=== PATIENT | female | born 1940 | race Caucasian/White ===

== ENCOUNTER 2020-01-24 13:51 | Inpatient (IN) | payer OTHER ==
--- NOTE | 2020-01-24 10:20 | R.PREADM ---
PRE-ADMISSION SCREENING FORM SCREENING DATE AND TIME 01/23/2020 15:17 (CDT) ANTICIPATED REHAB ADMISSION DATE 01/25/2020 REFERRING FACILITY [facility] REFERRAL DATE AND TIME 01/23/2020 15:17 (CDT) REFERRAL OFFICE PHONE [phone] ACUTE ADMIT DATE 01/21/2020 Previous Rehabilitation(s): No. 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 Nathan Grove M.D. MR# [id number] NAME SO JAMES ADDRESS [address] [place] [address] [place] [address] PHONE [facility] [id number] DATE OF 1940 AGE 79 SSN# [id number] GENDER female MARITAL STATUS RACE unknown race PREF. LANGUAGE (IF NON-PAKISTANI) Stateless ADMIT FROM 02 - [facility] PRE-HOSPITAL LIVING SETTING 01 - Home (private home/apt. board/care, assisted living, senior care, transitional living) HOME TYPE AND DETAILS Type of home: single family house # of levels in the residence: 1 # of steps within the residence: 0 # of steps to enter the residence: 1 PRE-HOSPITAL LIVING WITH Family/Relatives FAMILY SUPPORT Yes PRIMARY FAMILY CONTACT NAME RODNEY JAMES PRIMARY FAMILY CONTACT PHONE PRIMARY FAMILY CONTACT RELATIONSHIP Spouse PHONE PRIMARY FAMILY CONTACT ON ADM.? no IS PRIMARY FAMILY CONTACT AUTH. REP.? no 1ST EMERGENCY CONTACT RODNEY JAMES 1ST CONTACT PHONE 1ST CONTACT RELATIONSHIP Spouse PHONE 1ST CONTACT ON ADM. no IS 1ST CONTACT AUTH. REP.? no PHONE 2ND CONTACT ON ADM.? no PATIENT EMPLOYMENT STATUS Retired (for age) PATIENT EMPLOYER No Employer PAYOR INFORMATION: 1ST PAYOR NAME Medicare 1ST PAYOR PHONE 1ST PAYOR INJURY/ILLNESS DUE TO ACCIDENT? No ANOTHER DEMOCRAT RESPONSIBLE? No PRIMARY REHAB/ACUTE DIAGNOSIS: BILATERAL AVULSION TO LOWER EXTREMITIES ONSET DATE 01/21/2020 REHAB IMPAIRMENT CATEGORY (EVE): 20 Miscellaneous (Misc) does NOT meet 60% rule PRIMARY DIAGNOSIS-RELATED SURGERIES: No surgeries related to the primary diagnosis were performed. SUMMARY OF ACUTE HOSPITALIZATION: Pt. is a 79 yo Right-handed female of unknown race. On 01/21/2020 she was admitted to [facility] with diagnosis BILATERAL AVULSION TO LOWER EXTRE MITIES. Her impairment category is Debility 16 - Debility (16). Pre-morbidly, Pt. was independent/mod-I in Locomotion, Balance, Social Cognition, Transfers Control, Sphincter Control, Self-Care, Communication, and Endurance; and she had good Endurance, Self-Care, Co mmunication, Safety Awareness, and Transfers Control. Currently, she has deficits of Balance, Safety Awareness, Locomotion, Endurance, Sphincter Control, a nd Transfers Control. Pt. is now referred to [facility] for acute in-patient rehabilitation in order to maximize patient's functional independence in activities of daily living, strength, ROM, and mobi lity. Patient has realistic goal of being discharged at assistance level 6-Fly to reside at Home with Fam lisandro/Relatives. So James is a 79 year old independent female that lives in an independently at home and takes care of herself and her , Rodney. She performs all her own ADLs and IADLs. Prior to [facility] she was seeing her PCP regularly in [place] where she lives. Mrs. James admitted to [facility] for a fall in her gravel driveway injuring both knees and hand causing open wounds. She would most definitely benefit from wound care and acute inpatient therapy. This has caused Mrs. James to become severely debilitated and unable to live at her prior level of activity at home. She was unable to transfer out of the fall and was transferred to the emergency room. It is reasonable and necessary for the patient to come to acute inpatient rehab for approximately 7-10 days in order to return to her prior level of living for her and her . The patient has a history of CAD, HTN, A-fib, UTI, COPD, GERD, arthritis, pacemaker and stents in bilateral LE. She is now being transferred to [facility] Inpatient rehabilitation and is medically stable with relatively stable labs. He is now medically stable but in need of 24 hour nursing, doctor supervision and oversight while receiving expected to participate in 3 hours of therapy a day/15 hours per week and receive care with intensive interdisciplinary approach. COVID-19 screening performed; spoke with patient via phone. Patient denies new onset of fever, cough, difficulty breathing, sore throat, body aches and non-allergy nasal congestion in the past 24 hours. Patient denies travel outside of [place] in the past 14 days. Patient denies any contact with someone who has a confirmed diagnosis of or is under investigation for COVID-19 in the past 14 days. Patient has been tested negative for COVID- 19. PAST MEDICAL HISTORY CORONARY ARTERY DISEASE HYPERTENSION COPD CHRONIC GASTRESOPHAGEAL REFLUX DISEASE ARTHRITIS PAST SURGICAL HISTORY: PACEMAKER APPENDECTOMY HYSTERECTOMY TONSILLECTOMY BILATERAL FOOT SURGERY STENTS IN BILATERAL LOWER EXTREMITIES BILATERAL CATARACT SURGERY MEDICATION ALLERGIES: No Known Drug Allergies (NKDA) ENVIRONMENTAL ALLERGIES: - Substance Allergies None Known - Other Allergies None Known CODE STATUS: Full code WEIGHT/HEIGHT/BMI: WEIGHT 112 lbs HEIGHT 5' 0" BMI 21.9 DIET: - Diet Type Regular - Diet - Solid Texture Regular - Diet - Liquid Texture Regular - Tube Feed N/A REVIEW OF SYSTEMS: - Gen Alert and awake Lying in bed No apparent distress Oriented to: person, time, and place - Vital Signs Temperature: 98.1 F SBP/DBP: 185/62 Pulse: 88 Resp: 18 Vital signs stable, afebrile - CVS RRR VITAL SIGNS Temperature: 98/.1 F SBP/DBP: 185/62 Pulse: 88 Resp: 18 Vital signs stable, afebrile MEDICATIONS/TREATMENT: Other- See attached MAR (Medication Administration Record). CURRENT SPHINCTER CONTROL: Pre-hospital bladder status: unspecified # of bladder accidents in the last 7 days prior to screenin Pre-hospital bowel status: unspecified # of bowel accidents in the last 7 days prior to screenin Last Bowel Movement Date: 01/23/2020 CURRENT LOCOMOTION STATUS: distance walked 0 feet DETAILED CURRENT FUNCTIONAL STATUS: - Bladder accident frequency: Ind - No accidents in the past 7 days - Bowel accident frequency: Ind - No accidents in the past 7 days - Walking score based on distance walked: 0(N/A) - Wheelchair score based on distance traveled: 0(N/A) QI SCORES: - Self-Care A. Eating 03-Partial/moderate assistance B. Oral hygiene 03-Partial/moderate assistance C. Toileting hygiene 88-Not attempted due to medical condition or safety concerns E. Shower/bathe self 03-Partial/moderate assistance F. Upper body dressing 88-Not attempted due to medical condition or safety concerns G. Lower body dressing 88-Not attempted due to medical condition or safety concerns H. Putting on/taking off footwear 88-Not attempted due to medical condition or safety concerns - Mobility A. Roll left and right 03-Partial/moderate assistance B. Sit to lying 03-Partial/moderate assistance C. Lying to sitting on side of bed 03-Partial/moderate assistance D. Sit to stand 03-Partial/moderate assistance E. Chair/pxz-ny-wqzyy transfer 03-Partial/moderate assistance F. Toilet transfer 03-Partial/moderate assistance G. Car transfer 88-Not attempted due to medical condition or safety concerns I. Walk 10 feet 88-Not attempted due to medical condition or safety concerns J. Walk 50 feet with two turns 88-Not attempted due to medical condition or safety concerns K. Walk 150 feet 88-Not attempted due to medical condition or safety concerns L. Walking 10 feet on uneven surfaces 88-Not attempted due to medical condition or safety concerns M. 1 step (curb) 88-Not attempted due to medical condition or safety concerns N. 4 steps 88-Not attempted due to medical condition or safety concerns O. 12 steps 88-Not attempted due to medical condition or safety concerns P. Picking up object 03-Partial/moderate assistance R. Wheel 50 feet with two turns 88-Not attempted due to medical condition or safety concerns S. Wheel 150 feet 88-Not attempted due to medical condition or safety concerns - Bladder and Bowel Bladder continence 3-Incontinent daily Bowel continence 0-Always continent - Endurance Fair - Balance Fair - Safety Awareness Fair CURRENT FUNC. DEFICITS: Self-Care, Mobility, Endurance, Balance, and Safety Awareness CURRENT / PREVIOUS ASSISTIVE DEVICES: Oxygen HISTORY OF FALLS. HAS THE PATIENT HAD TWO OR MORE FALLS IN THE PAST YEAR OR ANY FALL WITH INJURY IN T HE PAST YEAR?: No THERAPY NOTES FROM ACUTE CARE: Attached. SPECIAL NEEDS: - Safety Concerns Skin breakdown precautions needed due to skin breakdown risk PATIENT NEEDS ACTIVE AND ONGOING THERAPEUTIC INTERVENTION OF MULTIPLE THERAPY DISCIPLINES, INCLUDING: - Dietary and Nutrition Adequate Nutrition. Nutritional Education. Nutritional Supplements. PATIENT NEEDS CLOSE MEDICAL SUPERVISION BY A REHABILITATION PHYSICIAN FOR: Coordination of Treatment Team PATIENT REQUIRES 24X7 REHAB NURSING FOR MEDICAL AND FUNCTIONAL MGT. OF THE FOLLOWING DEFICITS: Disease Management Medication Management Patient/Family Education Providing Safe Environment PATIENT REQUIRES INTENSIVE, COORDINATED INTERDISCIPLINARY APPROACH TO REHAB: Arranging Home Equipment/Services Discharge Planning Family Intervention/Training Nurse Chemical Dependency/Case Management PATIENT REHAB POTENTIAL: Servando JAMES is able and expected to receive 3 hours of individualized therapy daily on at least 5 o f every 7 days Servando ARROYOs prognosis for significant practical improvement within a reasonable period of time ap pears Good Expected level of measurable improvement will be of a practical value to Servando JAMES's functional c apacity or adaptations to impairments Has a viable Discharge Plan Medically appropriate; condition is sufficiently stable to participate in intensive rehab program DISCHARGE PLAN: - Estimated Length of Stay (days) 13. - Consensus on plan Discharge plan has been discussed with primary caregiver. Patient/Family is in agreement with the tyrone n. Primary caregiver is in agreement with the plan. - Patient/Family Goals Return home independently. - Planned Living Setting Upon Discharge Home, to live with Family/Relatives. Transitional Living. RECOMMENDED CARE LEVEL: IRF RECOMMENDATION DETAILS: Recommended Admission to Comprehensive Rehabilitation Program to Increase Functional [place] SCREENER'S COMPLETENESS CONFIRMATION: - Screening Confirmation The patient data collection on this preadmission screening form is finished PHYSICIANS REVIEW AND ADMISSION DETERMINATION Admit - Based on my review of the Pre-Admission Screening results, in my medical judgment and experie nce, I concur with the findings and recommend admission to [facility], as this patient requires an IRF level of care. SIGNATURE PANEL: Fire Pilot - [electronically] signed by Paul No on 01/24/2020 at 09:21 (CDT) Clinical Liaison - [electronically] signed by Jessa Farr RN on 01/24/2020 at 09:26 (CDT) Physician Reviewer - [electronically] signed by Dr. Nathan Grove M.D. on 01/24/2020 at 10:19 (CDT )
--- OUTSIDE RECORDS SUMMARY | 2020-01-24 13:54 | XMS REPORT | Continuity of Care Document ---
:1940 Author Organization [facility] t Address [address] [place] [address] [address]. [address] [place] [address] Care Team Providers Name Role Phone COLBY Primary Care Physician Unavailable COLBY Attending Clinician Unavailable COLBY Admitting Clinician Unavailable Problems This patient has no known problems. Allergies, Adverse Reactions, Alerts This patient has no known allergies or adverse reactions. Medications This patient has no known medications. Procedures This patient has no known procedures. Encounters Start End Encounter Admission Attending Care Care Encounter Source Date/Time Date/Time Type Type Clinicians Facility Department ID 2017-06-12 2017-06-12 Outpatient [facility] [id number] 16:49:00 16:49:00 [facility] Results Test Description Test Time Test Comments Results Result Comments Source Lipid Profile 2017-06-12 21:46:00 Test Item Value Reference Range Interpretation Comme nts Cholesterol (test code = CHOL) 232 mg/dL 0-200 H Triglycerides (test code = 103 mg/dL 9-200 N TRIG) HDL (test code = HDL) 138 mg/dL 50-60 H Chol/HDL (test code = 1.7 Ratio 0.0-4.4 N CHOLPHDL) LDL, Calculated (test code = 73 mg/dL 0-130 N (NOTE)RISK OF HEART LDLC) DISEASEPublishe d by Dutch Heart AssociationAnal yte Optimal Boderline Increased R iskCHOL <200 200-239 >240TRIG <150 150-199 >200HDL Male: >60 <40HDL Female: & gt;60 <50LDL <100 130- 159 >160LDL NEAR OPTIMAL IS 100- 129 VLDL (test code = VLDL) 21 mg/dL 5-40 N LDL/HDL (test code = LDLPHDL) 1 Comprehensive Metabolic [id number] 21:34:00 Test Item Value Reference Range Interpretation Comments Sodium (test code = 138 mmol/L 135-145 N NA) Potassium (test 3.7 mmol/L 3.5-5.1 N code = K) Chloride (test code 99 mmol/L 98-105 N = CL) Carbon Dioxide 27 mmol/L 22-29 N (test code = CO2) Glucose (test code 98 mg/dL 70-115 N = GLU) Blood Urea Nitrogen 27 mg/dL 8-23 H (test code = BUN) Creatinine (test 1.1 mg/dL 0.5-0.9 H code = CREAT) Calcium (test code 9.4 mg/dL 8.3-10.5 N = CA) Prot Total (test 7.5 g/dL 6.4-8.3 N code = TP) Albumin (test code 4.3 g/dL 3.5-5.2 N = ALB) A/G Ratio (test 1.3 Ratio code = AGRATIO) Globulin (test code 3.2 2.9-3.1 H = GLOB) Bili Total (test 0.6 mg/dL 0.1-0.9 N code = TBIL) Alk Phos (test code 57 U/L 35-104 N = APHOS) AST (test code = 21 U/L 1-32 N AST) ALT (test code = 11 U/L 1-33 N ALT) BUN/Creatinine 24.5 Ratio (test code = BCRATIO) Anion Gap (test 12 mmol/L 7-16 N code = AGAP) Estimated GFR (test 51 eGFR (es timated code = GFR) mL/min/1.73m2 Glomerular Randy tration Rate) is an est imated value,calculate d from the patient's s umair creatinine usin g the MDRD equation.I t is NOT the patient 's actual GFR. The eGFR provides a more clinicallyusefu l measure of kidn ey disease than se rum creatinine alone.This calculation benigno es sex and race into account, if the informationis provided. If th e race is not provided , and the patient isAfrican-Ameri can, multiply by 1.2 12. If sex is not prov ided, and thepatient is female, multipl y by 0.742. Results for patients <18 ye ars ofage have not been validated by th e MDRD study and shoul d be interpretedwith caution.eGFR Re sult Interpretation: eGFR > or = 60 is in t he Normal RangeeGF R < 60 may mean kidney diseaseeGFR < 1 5 may mean kidney failureRange s recommended by the National Kidney Foundation,http ://nkd ep.nih.gov CBC with [id number] 21:23:00 Test Item Value Reference Range Interpretation Comments WBC (test code = WBC) 7.2 K/cumm 4.4-10.5 N RBC (test code = RBC) 3.91 M/cumm 3.75-5.20 N Hemoglobin (test code = HGB) 13.6 gm/dL 12.2-14.8 N Hematocrit (test code = HCT) 38.8 % 36.5-44.4 N MCV (test code = MCV) 99.1 fL 80-100 N MCH (test code = MCH) 34.7 pg 27.0-32.5 H MCHC (test code = MCHC) 35.0 g/dL 32.0-37.5 N RDW (test code = RDW) 13.2 % 11.5-14.5 N Platelet Count (test code = 180 K/cumm 140-440 N PLTCT) MPV (test code = MPV) 11.3 fL Diff Method (test code = DIFFM) Auto Neutrophil (test code = NEUT) 66.9 % 36-70 N Lymphocyte (test code = LYMPH) 21.3 % 12-44 N Monocyte (test code = MONO) 9.0 % 0-11 N Eosinophil (test code = EOS) 2.4 % 0-7 N Basophil (test code = BASO) 0.4 % 0-2 N Neutro Abs (test code = ANEUT) 4.8 K/cumm 1.6-7.4 N Lymph Abs (test code = ALYMPH) 1.5 K/cumm 0.5-4.6 N Carter Abs (test code = AMONO) 0.6 K/cumm 0.0-1.2 N Eos Abs (test code = AEOS) 0.17 K/cumm 0.00-0.74 N Baso Abs (test code = ABASO) 0.0 K/cumm 0.00-0.21 N Glycosylated [id number] 21:12:00 Test Item Value Reference Range Interpretation Comments HBA1c (test code = HBA1C) 5.1 % 4.8-5.9 N Lipid [id number] 20:26:00 Test Item Value Reference Range Interpretation Comments Cholesterol (test 220 mg/dL 0-200 H code = CHOL) Triglycerides (test 64 mg/dL 9-200 N code = TRIG) HDL (test code = 141 mg/dL 50-60 H HDL) Chol/HDL (test code 1.6 Ratio 0.0-4.4 N = CHOLPHDL) LDL, Calculated 66 mg/dL 0-130 N (NOTE)RISK O F HEART (test code = LDLC) DISEASEPu blished by Dutch Heart AssociationAnal yte Optim al Boderline Increased RiskC HOL <200 200-239 >240TRI G <150 150-199 >200HDL Male: >60 <40HDL Female: >60 <50 LDL < 100 130-15 9 >160 LDL NEAR OPTIMAL IS 100- 129 VLDL (test code = 13 mg/dL 5-40 N VLDL) LDL/HDL (test code = 0 LDLPHDL) CBC with [id number] 20:26:00 Test Item Value Reference Range Interpretation Comments WBC (test code = WBC) 7.4 K/cumm 4.4-10.5 N RBC (test code = RBC) 3.72 M/cumm 3.75-5.20 L Hemoglobin (test code = HGB) 12.2 gm/dL 12.2-14.8 N Hematocrit (test code = HCT) 37.6 % 36.5-44.4 N MCV (test code = MCV) 101.1 fL 80-100 H MCH (test code = MCH) 32.8 pg 27.0-32.5 H MCHC (test code = MCHC) 32.4 g/dL 32.0-37.5 N RDW (test code = RDW) 14.0 % 11.5-14.5 N Platelet Count (test code = 237 K/cumm 140-440 N PLTCT) MPV (test code = MPV) 9.3 fL Diff Method (test code = DIFFM) Auto Neutrophil (test code = NEUT) 74.1 % 36-70 H Lymphocyte (test code = LYMPH) 16.3 % 12-44 N Monocyte (test code = MONO) 7.7 % 0-11 N Eosinophil (test code = EOS) 1.7 % 0-7 N Basophil (test code = BASO) 0.2 % 0-2 N Neutro Abs (test code = ANEUT) 5.5 K/cumm 1.6-7.4 N Lymph Abs (test code = ALYMPH) 1.2 K/cumm 0.5-4.6 N Carter Abs (test code = AMONO) 0.6 K/cumm 0.0-1.2 N Eos Abs (test code = AEOS) 0.13 K/cumm 0.00-0.74 N Baso Abs (test code = ABASO) 0.0 K/cumm 0.00-0.21 N RBC Morphology (test code = Not Indicated RBCMRPH) Macrocytosis (test code = Slight MACRO) Platelet Est (test code = Not Indicated PLTEST) Urinalysis [id number] 20:10:00 Test Item Value Reference Range Interpretation Comments Color (test code = COLOR) Yellow Yellow,Straw,Pl N yellow Clarity (test code = Clear Clear N CLAR) Specific Dafter (test 1.013 1.001-1.035 N code = SPGR) pH (test code = PH) 5.0 5.0-9.0 N Ketone (test code = KET) Negative mg/dL Negative N Glucose (test code = Negative mg/dL Negative N GLUCUR) Protein (test code = Negative mg/dL Negative N PROT) Bilirubin (test code = Negative mg/dL Negative N BILI) Occult Blood (test code = Negative Negative N UDOB) Urobilinogen (test code = 0.2 mg/dL 0.2-1.0 N UROB) Nitrite (test code = NIT) Negative Negative N Leuk Esterase (test code Small Negative A = LEUK) Micros Exam (test code = Indicated MEXAM) Epithelial Cells (test 20-29 /LPF 0-30 A code = EPI) WBC, Urine (test code = 6-10 /HPF 0-5 A UWBC) RBC, Urine (test code = 0-3 /HPF 0-5 A URBC) Bacteria (test code = Many /HPF BACT) Comprehensive Metabolic [id number] 20:09:00 Test Item Value Reference Range Interpretation Comments Sodium (test code = 138 mmol/L 135-145 N NA) Potassium (test 4.2 mmol/L 3.5-5.1 N code = K) Chloride (test code 101 mmol/L 98-105 N = CL) Carbon Dioxide 24 mmol/L 22-29 N (test code = CO2) Glucose (test code 102 mg/dL 70-115 N = GLU) Blood Urea Nitrogen 23 mg/dL 8-23 N (test code = BUN) Creatinine (test 1.1 mg/dL 0.5-0.9 H code = CREAT) Calcium (test code 9.2 mg/dL 8.3-10.5 N = CA) Prot Total (test 6.9 g/dL 6.4-8.3 N code = TP) Albumin (test code 4.5 g/dL 3.5-5.2 N = ALB) A/G Ratio (test 1.9 Ratio code = AGRATIO) Globulin (test code 2.4 2.9-3.1 L = GLOB) Bili Total (test 0.7 mg/dL 0.1-0.9 N code = TBIL) Alk Phos (test code 62 U/L 35-104 N = APHOS) AST (test code = 23 U/L 1-32 N AST) ALT (test code = 12 U/L 1-33 N ALT) BUN/Creatinine 20.9 Ratio (test code = BCRATIO) Anion Gap (test 13 mmol/L 7-16 N code = AGAP) Estimated GFR (test 51 eGFR (es timated code = GFR) mL/min/1.73m2 Glomerular Randy tration Rate) is an est imated value,calculate d from the patient's s umair creatinine usin g the MDRD equation.I t is NOT the patient 's actual GFR. The eGFR provides a more clinicallyusefu l measure of kidn ey disease than se rum creatinine alone.This calculation benigno es sex and race into account, if the informationis provided. If th e race is not provided , and the patient isAfrican-Ameri can, multiply by 1.2 12. If sex is not prov ided, and thepatient is female, multipl y by 0.742. Results for patients <18 ye ars ofage have not been validated by th e MDRD study and shoul d be interpretedwith caution.eGFR Re sult Interpretation: eGFR > or = 60 is in t he Normal RangeeGF R < 60 may mean kidney diseaseeGFR < 1 5 may mean kidney failureRange s recommended by the National Kidney Foundation,http ://nkd ep.nih.gov
--- OUTSIDE RECORDS SUMMARY | 2020-01-24 13:56 | XMS REPORT | Continuity of Care Document ---
:1940 Author Organization [facility] Address [address] [place] [address] Care Team Providers Name Role Phone DO SANDOR MAYER Primary Care Physician Allergies, Adverse Reactions, Alerts Allergen Type Severity Reaction Last Verified Status Updated Cefadroxil Allergy Severe June Yes Active ([id number]) 2018 Codeine Allergy Severe September 20, Yes Active ([id number]) 2015 Erythromycin Allergy Severe chest pain September 20, Yes Activ e ([id number]) 2016 Amlodipine Allergy Severe legs September 20, Yes Active ([id number]) swelling 2016 Azithromycin Allergy Severe chest pain September 20, Yes Activ e ([id number]) 2016 Penicillins Allergy Severe September 20, Yes Active ([id number]) 2016 Medications Medication Status Dose Units Route Sig Qty Days Start End Instruct ions Date Date Albuterol Active 2 RESPIRAT Every 1 30 ORY 4-6 (INHALAT Hours ION) As Needed as needed for Wheezi ng / Shortn ess Of Breath Ascorbic Acid Active 500 ORAL Daily Aspirin Active 1 ORAL Daily 30 30 Azilsartan/Chl Active 1 ORAL Daily 30 30 orthalidone Cyanocobalamin Active 500 ORAL Twice A Week Docusate Active 1 ORAL Twice 60 30 Sodium A Day Fluticasone-Um Active 1 RESPIRAT Daily 1 30 eclidinium-Ashwin ORY an (INHALAT ION) Folic Acid Active 1 ORAL Daily 30 30 Furosemide Active 1 ORAL Daily 30 30 as needed for Prn Metoprolol Active 1 ORAL Twice 60 30 Tartrate A Day Pantoprazole Active 40 ORAL Once 30 30 Sodium Daily At Bedtim e Prednisone Active 10 ORAL As 20 5 Needed Roflumilast * Active 250 ORAL Daily 30 30 Sotalol Hcl Active 1 ORAL Twice 60 30 (Afib/Afl) * A Day Trimethoprim/S Active 1 ORAL Twice 14 26 May ulfamethoxazol A Day , e for 2019 Infect 6:35pm ion Albuterol Discontin 1-2 RESPIRAT Rt-Rebeca June ued ORY ry 6 , (INHALAT Hours 2018 ION) As Needed Apixaban Discontin 5 ORAL Twice June ued A Day 2018 Ascorbic Acid Discontin 500 ORAL Daily January ued 2019 Ascorbic Acid Discontin 500 ORAL Daily June ued 2018 Aspirin Discontin 81 ORAL Daily June ued 2018 Aspirin Discontin 81 ORAL Daily June ued 2018 Azelastine Discontin 1 NASAL As 14 July Hcl-Fluticason ued Needed , Pro as 2019 needed for Nasal Docusate Discontin 100 ORAL Twice June Sodium ued A Day 2018 Edarbuclor Discontin January ued 2019 Fluticasone Discontin 1 Daily June Furoate-Vilant ued , shira 2018 Fluticasone-Um Discontin 1 RESPIRAT Daily [address] eclidinium-Ashwin ued ORY , an (INHALAT 2019 ION) Fluticasone-Um Discontin 1 RESPIRAT Daily 1 30 Sahil ilda eclidinium-Ashwin ued ORY , an (INHALAT 2018 ION) Folic Acid Discontin 1 ORAL Daily 30 30 January ued 2019 Methylcellulos Discontin 500 ORAL Twice June e * ued A Day 2018 Minocycline Discontin 1 ORAL Twice 14 September Hcl ued A Day 2015 2019 7:50am Nebivolol * Discontin 10 ORAL Daily June ued 2018 Nebivolol * Discontin 10 ORAL Daily June ued 2018 Nifedipine Discontin 30 ORAL Daily June ued 2018 Pantoprazole Discontin 40 ORAL Daily January Sodium ued 2019 Pantoprazole Discontin 40 ORAL Daily June Sodium ued 2018 Prednisone Discontin 10 ORAL Once January ued Daily 2019 Prednisone Discontin 10 ORAL As June ued Needed , as 2019 needed for Resp Diffic ulty Roflumilast * Discontin 0.5 ORAL Every June ued Other 2018 Simvastatin Discontin 80 ORAL Once June ued Daily , At 2018 Bedtim e Sotalol Hcl Discontin 80 ORAL Twice June ued A Day 2018 Spironolactone Discontin 1 ORAL Daily June ued as 2018 for Roxana alberts Spironolactone Discontin 25 ORAL Once June ued Daily 2018 Triamterene & Discontin 1 ORAL Daily June Hydrochlorothi ued 2018 Triamterene/Hc Discontin 1 ORAL Daily June tz * ued 2018 Problems Active Problems Medical Problem Onset Date Status SSS (sick sinus syndrome) Active A-fib Active Dizziness Active CAD (coronary artery disease) Active HTN (hypertension) Active Ulcer of leg, chronic, left Active Open wound of left lower extremity Activ e with complication Avulsion injury of left knee region Acti ve Avulsion injury of right knee Active region Inactive/Resolved Problems Medical Problem Onset Date Status COPD exacerbation Resolved CHF exacerbation Resolved UTI (urinary tract infection) Resolved Nausea Resolved Procedures Procedure Date Performed Status X-ray left knee, AP/lateral January 21, 2020 completed XR knee right, 2 views January 21, 2020 completed X-ray of left hand, three or January 21, 2020 completed more views X-ray of right hand, three or January 21, 2020 completed more views Relevant Diagnostic Tests and/or Laboratory Data Laboratory Results Test Date/Time Result Interpretation Reference Result Perfo rming Range Comment Site White Blood Count January 20, 9.3 4.0-11.5 [facility], 104 2019 1:55pm [facility] [address] Red Blood Count January 20, 3.56 3.80-5.20 MR , 104 2019 1:55pm [facility] [address] Hemoglobin January 20, 11.2 10.5-15.7 [facility], 1 04 2019 1:55pm [facility] [address] Hematocrit January 20, 35.3 34.0-50.0 [facility], 1 04 2019 1:55pm [facility] [address] Mean Corpuscular January 20, 99.2 86-100 M [facility], 104 Volume 2020 1:55pm [facility] [address] Mean Corpuscular January 20, 31.5 26.2-33.4 M [facility], 104 Hemoglobin 2019 1:55pm [facility] [address] Mean Corpuscular January 20, 31.7 30-34 M [facility], 104 Hemoglobin Concent 2019 1:55pm [place] [address] Red Cell January 20, 13.2 12.0-15.5 [facility], [address] Distribution Width 2019 1:55pm [place] [address] Platelet Count January 20, 219 165-450 [facility], [address] ST 2020 1:55pm [place] [address] Mean Platelet January 20, 10.0 9.4-12.6 [facility] , [address] Volume 2020 1:55pm [place] [address] Neutrophils (%) January 20, 72.0 44.4-80.1 [facility] , 104 (Auto) 2019 1:55pm [place] [address] Immature January 20, 0.3 0.0-0.4 [facility], 10 4 Granulocyte % 2019 1:55pm [place] [address] (Auto) Lymphocytes (%) January 20, 17.1 10.0-50.0 [facility], 104 (Auto) 2019 1:55pm [place] [address] Monocytes (%) January 20, 9.1 3.6-12.0 [facility] , 104 (Auto) 2019 1:55pm [place] [address] Eosinophils (%) January 20, 1.2 0.0-5.4 [facility] , 104 (Auto) 2019 1:55pm [place] [address] Basophils (%) January 20, 0.3 0.1-1.2 [facility] , 104 (Auto) 2019 1:55pm [place] [address] Neutrophils # January 20, 6.70 1.56-6.13 [facility] , 104 (Auto) 2019 1:55pm [place] [address] Absolute Immature January 20, 0.0 0.0-0.03 [facility], 104 Granulocyte (auto 2020 1:55pm [place] [address] Lymphocytes # January 20, 1.6 1.18-3.74 [facility] , 104 (Auto) 2019 1:55pm [place] [address] Monocytes # (Auto) January 20, 0.85 0.24-0.86 [facility], 104 2019 1:55pm [place] [address] Eosinophils # January 20, 0.11 0.04-0.36 [facility] , (Auto) 2019 1:55pm [facility] [address] Basophils # (Auto) January 20, 0.03 0.01-0.08 [facility], 2019 1:55pm [facility] [address] Nucleated Red January 20, 0 0-0.2 [facility] , Blood Cells % 2019 1:55pm [facility] [address] Nucleated Red January 20, 0 0 [facility] , Blood Cells # 2019 1:55pm [facility] [address] Urine Color January 20, LIGHT [facility], 2019 1:48pm YELLOW [facility] [address] Urine Appearance January 20, CLEAR CLEAR M [facility], 2019 1:48pm [facility] [address] Urine Glucose (UA) January 20, NEGATIVE NEGATIVE [facility], 2019 1:48pm [facility] [address] Urine Bilirubin January 20, NEGATIVE NEGATIVE [facility], 2019 1:48pm [facility] [address] Urine Ketones January 20, TRACE NEGATIVE [facility] , 2019 1:48pm [facility] [address] Urine Specific January 20, 1.012 1.003-1.03 [facility], 2019 1:48pm 0 [facility] [address] Urine Blood January 20, NEGATIVE NEGATIVE [facility], 2019 1:48pm [facility] [address] Urine pH January 20, 6.500 5-9 [facility], 10 4 2019 1:48pm [facility] [address] Urine Protein January 20, NEGATIVE NEGATIVE [facility] , 2019 1:48pm [facility] [address] Urine Urobilinogen January 20, NORMAL 0.2-1.0 [facility], 2019 1:48pm [facility] [address] Urine Nitrate January 20, NEGATIVE NEGATIVE [facility] , 2019 1:48pm [facility] [address] Urine Leukocyte January 20, 2+ NEGATIVE [facility], Esterase 2019 1:48pm [place] [address] Urine RBC January 20, 1-5 0-5 [facility], 10 4 2019 1:48pm [facility] [address] Urine WBC January 20, 6-10 0-5 [facility], 10 4 2019 1:48pm [facility] [address] Urine Epithelial January 20, 1-5 0-5 M [facility], [address] ST Cells 2020 1:48pm [facility] [address] Urine Bacteria January 20, None None [facility], 2019 1:48pm Detected Detect [facility] [address] Urine Casts January 20, None [facility] Detected Detect [facility] [address] Urine Culture January 20, ALREADY [facility] , Reflexed 2020 1:48pm ORDERED [facility] [address] Random Glucose January 20, 125 82-115 [facility], 104 2019 1:55pm [facility] [address] Blood Urea January 20, 44 8-23 [facility], 1 04 Nitrogen 2020 1:55pm [facility] [address] Serum Osmolality January 20, 289 280-300 M [facility] [place], 2019 1:55pm [facility] [address] Creatinine January 20, 1.7 0.50-0.90 [facility], 1 04 2019 1:55pm [facility] [address] Glomerular January 20, 29.07 GFR RESULTS [facility], Filtration Rate 2020 1:55pm [facility] [address] Calc REPORTED IN mL/min/1.73 m2.Normal GFR: >60mL/minMo derately decreased GFR: 30-59 mL/minSever serafin decreased GFR: 15-29 mL/minKidne y Failure (or Dialysis): <15 mL/minThe calculated eGFR is not valid for patients younger than 18 years or older than 75 years. BUN/Creatinine January 20, 25.9 12-20 [facility], 104 Ratio 2020 1:55pm [facility] [address] Sodium Level January 20, 138 135-145 [facility], 104 2019 1:55pm [facility] [address] Potassium Level January 20, 4.7 3.5-5.2 [facility], 2019 1:55pm [facility] [address] Chloride Level January 20, 100 98-108 [facility], 2019 1:55pm [facility] [address] Carbon Dioxide January 20, 25 21-32 [facility], 104 Level 2020 1:55pm [place] [address] Anion Gap January 20, 17.7 12-20 [facility], 10 4 2019 1:55pm [facility] [address] Calcium Level January 20, 8.9 8.8-10.2 [facility] , [address] ST 2019 1:55pm [place] [address] Total Protein January 20, 6.7 6.6-8.7 [facility] , [address] ST 2019 1:55pm [place] [address] Albumin January 20, 4.2 3.5-5.2 [facility], [address] 2020 1:55pm [place] [address] Globulin January 20, 2.5 [facility], [address] 2019 1:55pm [place] [address] Albumin/Globulin January 20, 1.7 >1.0 M [facility], [address] ST Ratio 2020 1:55pm [place] [address] Total Bilirubin January 20, 0.5 0.0-1.2 MR , [address] ST 2019 1:55pm [place] [address] Aspartate Amino January 20, 18 15-32 MR , [address] Transf (AST/SGOT) 2020 1:55pm [place] [address] Alanine January 20, 7 0-33 [facility], [address] Aminotransferase 2020 1:55pm B [facility] [address] (ALT/SGPT) Total Alkaline January 20, 56 35-105 [facility], [address] ST Phosphatase 2020 1:55pm [place] [address] Diagnostic Imaging Reports Report Dictated Date/Time Dictated By Status January 21, 2020 IBRAHIMA GILES MD completed 12:06pm Patient: AURA JAMES#: [id number] 622 : [address] DANA MAYER DO Pt Status: REG ER Pt Location: ER Date/Time: 01/21/20 1057 Primary Care Physician: DAVE Joe MD Technologist(s): NITZA GAMBOA Procedure(s): [id number] RAD/KNEE RIGHT 2V Signed EXAMINATION: X-ray bilateral knees. INDICATION: Fall. Knee pain. COMPARISON: None TECHNIQUE: 2 views of the bilateral kn ees were obtained. FINDINGS: Right knee findings: No suprapatellar joint effusion. No fracture or dislocation. Soft tissues intact. Joint spaces are maintained. Vascular calcifications are present. Left knee findings: No suprapatellar joint effusion. No fracture or dislocation. Soft tissues intact. Joint spaces are maintained. Vascular stent is present. IMPRESSION: No fracture or dislocation. Electronically signed by: Ibrahima Giles MD 01/21/2020 12:06 PM CDT Transcribed By: BROOKS JONES SIGNED < electronically signed by IBRAHIMA GILES MD> [id number] IBRAHIMA GILES MD January 21, 2020 IBRAHIMA GILES MD completed 12:06pm Patient: AURA JAMES#: [id number] 622 : [address] DANA MAYER DO Pt Status: REG ER Pt Location: M ER Date/Time: 01/21/20 1057 Primary Care Physician: DAVE Joe MD Technologist(s): NITZA GAMBOA Procedure(s): RAD/KNEE LEFT 2V Signed EXAMINATION: X-ray bilateral knees. INDICATION: Fall. Knee pain. COMPARISON: None TECHNIQUE: 2 views of the bilateral kn ees were obtained. FINDINGS: Right knee findings: No suprapatellar joint effusion. No fracture or dislocation. Soft tissues intact. Joint spaces are maintained. Vascular calcifications are present. Left knee findings: No suprapatellar joint effusion. No fracture or dislocation. Soft tissues intact. Joint spaces are maintained. Vascular stent is present. IMPRESSION: No fracture or dislocation. Electronically signed by: Ibrahima Giles MD 01/21/2020 12:06 PM CDT Transcribed By: BROOKS JONES SIGNED < electronically signed by IBRAHIMA GILES MD> [id number] IBRAHIMA GILES MD January 21, 2020 KARMEN MONTILLA DO completed 12:09pm Patient: AURA JAMES#: [id number] 622 : 1940 Ordering DrZainab: DANA MAYER DO Pt Status: REG ER Pt Location: M ER Date/Time: 01/21/20 1057 Primary Care Physician: DAVE Joe MD Technologist(s): NITZA GAMBOA Procedure(s): [id number] RAD/HAND MIN 3V LEFT Signed Left hand radiographs: 01/21/2020 12:09 PM CDT TECHNIQUE: AP, lateral, oblique images of the left hand were obtained. HISTORY: 79-year-old patient with histo ry of left hand pain, trauma. COMPARISON: None available FINDINGS: The carpal arcs appear to be intact. The soft tissues are grossly unremarkable. There are no findings to s uggest an acute fracture or subluxation within the left hand. No abnormal soft t issue calcifications, significant osteophyte formation, periarticular oste openia, or bony erosions are seen. The fifth digit is flexed on all of the imag es. IMPRESSION: There are no findings to luis ggest an acute fracture or subluxation within the left hand. Electronically signed by: Karmen purdy DO 01/21/2020 12:09 PM CDT Transcribed By: BROOKS JONES SIGNED < electronically signed by KARMEN MONTILLA DO> [id number] KARMEN MONTILLA DO January 21, 2020 KARMEN MONTILLA DO completed 12:46pm Patient: AURA JAMES#: [id number] 622 : [address] DANA MAYER DO Pt Status: [facility] Pt Location: [facility] Date/Time: 01/21/20 1057 Primary Care Physician: DAVE Joe MD Technologist(s): NITZA GAMBOA Procedure(s): [id number] RAD/HAND MIN 3V RIGHT Signed Right hand radiographs: 01/21/2020 12:46 P M CDT TECHNIQUE: AP, lateral, oblique images of the right hand were obtained. HISTORY: 79-year-old patient with histo ry of right hand pain, trauma, fall. COMPARISON: None available FINDINGS: The carpal arcs appear to be intact. The soft tissues are grossly un remarkable. There are no findings to sug gest an acute fracture or subluxation within the right hand. No abnormal soft tissue calcifications, significant osteophyte formation, periarticular oste openia, or bony erosions are seen. IMPRESSION: There are no findings to luis ggest an acute fracture or subluxation within the right hand. Electronically signed by: Karmen purdy DO 01/21/2020 12:46 PM CDT Transcribed By: BROOKS JONES SIGNED < electronically signed by KARMEN MONTILLA DO> [id number] KARMEN MONTILLA DO Health Concerns Health Concerns may be documented in an alternate section. Advance Directives Advance Directive Response Recorded Date/Time Advance Directives No September 17, 2015 10: 28am Advance Directive on File No January 20 4:56pm Patient/Family Given Education No January 4:56pm Material R/T Directives? Chief Complaint and Reason for Visit Chief Complaint BILATERAL KNEE AVULSION INJU RY Reason for Visit SSS (sick sinus syndrome) HTN (hypertension) Avulsion injury of left knee region Avulsion injury of right kne e region Encounters Encounter Location(s) Arrival/Admit Date Discharge/Depart Date Provider(s) Discharged [place] January 21, 2020 January 24, 2020 YULI HILL Inpatient (obs) [facility] 12:48pm 12:45pm DO Ctr Recent Diagnosis Onset Date SSS (sick sinus syndrome) HTN (hypertension) Avulsion injury of left knee region Avulsion injury of right knee region Assessments Diagnosis Onset Date Resolution Status SSS (sick sinus Active syndrome) HTN (hypertension) Active Avulsion injury of left Active knee region Avulsion injury of Active right knee region Functional Status No Functional Status information available Goals Goals may be documented in an alternate section. Immunizations Immunization Event Date Not Given Dose Time Study Clerk Lot Vac cine Reason Number Number Informatio n Statement (VIS) Deta il TDaP January 20 SANOFI PS [id number] 2019 Mental Status No Mental Status Information Available Medical Equipment No Medical Equipment Information available Insurance Providers Guarantor So James Address [address] [facility] [address] Contact Info. Home Phone: Payer Policy Id Coverage Id Subscriber's Subscriber Id Effective E xpiration Name Date Date Medicare [id number] Jamie [id number] [place] [id number] Jamie [id number] [place] Ind[place] Claims Social History Smoking Status Status Date of Observation Ex-smoker (finding) January 21, 2020 4:56pm Observation Status Observation Response Date of Response Hx Alcohol Use Y - SCOTCH DAILY January 21, 2020 5:0 4pm Hx Physical Abuse No January 21, 2020 5:0 4pm Assigned Sex Female Vital Signs Vital Reading Result Collection Date/Time Weight 106.44 [lb_av] January 24, 2020 5:2 8am BMI (Body Mass Index) 20.8 kg/m2 January 24, 2020 5 :28am Hospital Discharge Instructions Additional Instructions Instructions Physician Documentation Discharge Instructions S/P BILATERAL LOWER EXTREMETY AVULSION LACERATION CONTINUE HOME MEDS DIET TOLERATED No Heavy Lifting No Driving DRESSING CHANGES PER WOUND CARE PT TRANSFERED TO [facility] Follow Up with Ordering Provider for Home Medication Management.
[2020-01-24 16:01] LABS: Urine Appearance CLOUDY; Urine Bilirubin NEGATIVE (NEG); Urine Blood NEGATIVE (NEG); Urine Color YELLOW; Urine Glucose NEGATIVE (NEG); Urine Protein NEGATIVE (NEG); Urine Urobilinogen 0.2 mg/dL (0.2-1.0); Urine pH 5.5 (5.0-7.0)
[2020-01-24] MEDS ORDERED: ALBUTEROL INHALER 60 PUFF/8 GM IH PRN (16:14)
[2020-01-24 16:15] LABS: Urine Bacteria <20 /HPF (<20); Urine Culture Reflex Order NOT NEEDED; Urine RBC <5 /HPF (NONE SEEN)
[2020-01-24] MEDS ORDERED: HOME MED [ALBUTEROL INHALER 60 PUFF/8 GM] IH PRN (17:25)
[2020-01-24] MEDS: SOTALOL HCL 80 MG TAB PO SCH (17:50)
[2020-01-24] MEDS: APIXABAN 2.5 MG TABLET PO SCH ×2 (19:10→20:00)
[2020-01-24] MEDS: METOPROLOL TAR 50 MG TAB PO SCH (19:10)
[2020-01-24] MEDS: SMZ./TMP. 800/160 MG TABLET PO SCH (19:11)
[2020-01-24] MEDS: ACETAMINOPHEN 325 MG TABLET PO PRN (19:11)
[2020-01-24] MEDS: ZOLPIDEM TARTRATE 5 MG TABLET PO PRN (19:11)
[2020-01-24] MEDS: DOCUSATE NA 100 MG CAP PO SCH (19:12)
[2020-01-24] MEDS ORDERED: CYANOCOBALAMIN 1,000 MCG TAB PO SCH ×2 (20:00)
[2020-01-25] MEDS: SOTALOL HCL 80 MG TAB PO SCH ×2 (06:00→16:56)
[2020-01-25 06:12] LABS: Absolute Lymphocytes (CBC) 0.9 K/uL (0.7-4.9); Basophils % 0.6 % (0-1.3); Hematocrit 29.4 % (36.0-45.0); Lymphocytes % 12.4 % (15.3-44.8); MPV 8.9 fL (7.6-11.3); RBC Red Blood Cell Count 3.08 M/uL (3.86-4.86)
[2020-01-25] MEDS: PANTOPRAZOLE 40MG TABLET PO SCH (06:27)
[2020-01-25] MEDS: TRAMADOL HCL 50 MG TAB PO PRN (06:27)
[2020-01-25 06:30] LABS: Albumin 2.8 g/dL (3.4-5.0); Magnesium 2.4 mg/dL (1.8-2.4); Potassium 4.7 mmol/L (3.5-5.1); Prealbumin 14.5 mg/dL (20-40)
[2020-01-25] MEDS: METOPROLOL TAR 50 MG TAB PO SCH (08:00)
[2020-01-25] MEDS: [UNRECOGNIZED DRUG - OTHER] IH SCH ×2 (08:00→12:28)
[2020-01-25] MEDS: APIXABAN 2.5 MG TABLET PO SCH (08:00)
[2020-01-25] MEDS: [UNRECOGNIZED DRUG - OTHER] PO SCH (08:00)
[2020-01-25] MEDS ORDERED: NA CHLORIDE 0.9% 1,000 ML ONE (08:37)
[2020-01-25] MEDS: ROFLUMILAST 500 MCG TABLET PO SCH (08:38)
[2020-01-25] MEDS: ASCORBIC ACID 500 MG TABLET PO SCH (08:38)
[2020-01-25] MEDS: SMZ./TMP. 800/160 MG TABLET PO SCH ×2 (08:38→20:36)
[2020-01-25] MEDS: ASPIRIN 81 MG CHEWABLE TABLET PO SCH (08:39)
[2020-01-25] MEDS: DOCUSATE NA 100 MG CAP PO SCH ×2 (08:39→20:36)
[2020-01-25] MEDS ORDERED: NA CHLORIDE 0.9% 1,000 ML IV SCH (09:00)
[2020-01-25] MEDS: COLLAGENASE 30 GM OINTMENT TOP SCH (12:28)
[2020-01-25] MEDS: FOLIC ACID 400 MCG PO SCH (12:29)
--- NOTE | 2020-01-25 14:12 | FAST ---
[employer] FORM SHIFT START DATE/TIME: 01/25/2020 07:00 (CDT) SHIFT END DATE/TIME: 01/25/2020 19:00 (CDT) NAME SO JAMES DATE OF : 1940 DATE OF ADMISSION: 01/24/2020 12:00 (CDT) PHONE: AGE: 79 N# [id number] GENDER: Female ENCOUNTER PHYSICIAN: Dr. Nathan Grove M.D. ADMISSION DIAGNOSIS: - Debility 16 - Debility (16) BILATERAL AVULSION TO LOWER EXTREMITIES. EATING: EATING - STEP 1: Does the patient complete the activity by him/herself with no assistance (physical, verbal/nonverbal cueing, setup/clean-up)? No. EATING - STEP 2: Does the patient need only setup/clean-up assistance from one helper? Yes. 1. [id number] ADMISSION PERFORMANCE: Setup or clean-up assistance CODE: 05 ORAL HYGIENE: ORAL HYGIENE - STEP 1: Does the patient complete the activity by him/herself with no assistance (physical, verbal/nonverbal cueing, setup/clean-up)? No. ORAL HYGIENE - STEP 2: Does the patient need only setup/clean-up assistance from one helper? Yes. 1. [id number] ADMISSION PERFORMANCE: Setup or clean-up assistance CODE: 05 TOILETING HYGIENE: TOILETING HYGIENE - STEP 1: Does the patient complete the activity by him/herself with no assistance (physical, verbal/nonverbal cueing, setup/clean-up)? No. TOILETING HYGIENE - STEP 2: Does the patient need only setup/clean-up assistance from one helper? No. TOILETING HYGIENE - STEP 3: Does the patient need only verbal/nonverbal cueing or touching/steadying/contact guard assistance fro m one helper? Yes. 1. [id number] ADMISSION PERFORMANCE: Supervision or touching assistance CODE: 04 BATHING: Not assessed/no information CODE: - DRESSING - UPPER BODY: DRESSING - UPPER BODY - STEP 1: Does the patient complete the activity by him/herself with no assistance (physical, verbal/nonverbal cueing, setup/clean-up)? No. DRESSING - UPPER BODY - STEP 2: Does the patient need only setup/clean-up assistance from one helper? No. DRESSING - UPPER BODY - STEP 3: Does the patient need only verbal/nonverbal cueing or touching/steadying/contact guard assistance fro m one helper? Yes. 1. [id number] ADMISSION PERFORMANCE: Supervision or touching assistance CODE: 04 DRESSING - LOWER BODY: DRESSING - LOWER BODY - STEP 1: Does the patient complete the activity by him/herself with no assistance (physical, verbal/nonverbal cueing, setup/clean-up)? No. DRESSING - LOWER BODY - STEP 2: Does the patient need only setup/clean-up assistance from one helper? No. DRESSING - LOWER BODY - STEP 3: Does the patient need only verbal/nonverbal cueing or touching/steadying/contact guard assistance fro m one helper? No. DRESSING - LOWER BODY - STEP 4: Does the patient need physical assistance - for example lifting or trunk support from one helper - wi th the helper providing less than half of the effort? Yes. 1. [id number] ADMISSION PERFORMANCE: Partial/moderate assistance CODE: 03 PUTTING ON/TAKING OFF FOOTWEAR: FOOTWEAR - STEP 1: Does the patient complete the activity by him/herself with no assistance (physical, verbal/nonverbal cueing, setup/clean-up)? No. FOOTWEAR - STEP 2: Does the patient need only setup/clean-up assistance from one helper? No. FOOTWEAR - STEP 3: Does the patient need only verbal/nonverbal cueing or touching/steadying/contact guard assistance fro m one helper? No. FOOTWEAR - STEP 4: Does the patient need physical assistance - for example lifting or trunk support from one helper - wi th the helper providing less than half of the effort? No. FOOTWEAR - STEP 5: Does the patient need physical assistance - for example lifting or trunk support from one helper - wi th the helper providing more than half of the effort? Yes. 1. [id number] ADMISSION PERFORMANCE: Substantial/maximal assistance CODE: 02 SIT TO STAND: SIT TO STAND - STEP 1: Does the patient complete the activity by him/herself with no assistance (physical, verbal/nonverbal cueing, setup/clean-up)? No. SIT TO STAND - STEP 2: Does the patient need only setup/clean-up assistance from one helper? No. SIT TO STAND - STEP 3: Does the patient need only verbal/nonverbal cueing or touching/steadying/contact guard assistance fro m one helper? Yes. 1. [id number] ADMISSION PERFORMANCE: Supervision or touching assistance CODE: 04 TRANSFERS: BED, CHAIR: CHAIR/[id number] TRANSFER - STEP 1: Does the patient complete the activity by him/herself with no assistance (physical, verbal/nonverbal cueing, setup/clean-up)? No. CHAIR/[id number] TRANSFER - STEP 2: Does the patient need only setup/clean-up assistance from one helper? No. CHAIR/[id number] TRANSFER - STEP 3: Does the patient need only verbal/nonverbal cueing or touching/steadying/contact guard assistance fro m one helper? Yes. 1. [id number] ADMISSION PERFORMANCE: Supervision or touching assistance CODE: 04 TRANSFER TOILET: TOILET TRANSFER - STEP 1: Does the patient complete the activity by him/herself with no assistance (physical, verbal/nonverbal cueing, setup/clean-up)? No. TOILET TRANSFER - STEP 2: Does the patient need only setup/clean-up assistance from one helper? No. TOILET TRANSFER - STEP 3: Does the patient need only verbal/nonverbal cueing or touching/steadying/contact guard assistance fro m one helper? Yes. 1. [id number] ADMISSION PERFORMANCE: Supervision or touching assistance CODE: 04 TRANSFERS: CAR: Not assessed/no information CODE: - WALK 10 FEET: Not assessed/no information CODE: - 1 STEP (CURB): Not assessed/no information CODE: - PICKING UP OBJECT: Not assessed/no information CODE: - DOES THE PATIENT USE A WHEELCHAIR/SCOOTER? Q1. DOES THE PATIENT USE A WHEELCHAIR/SCOOTER?: Yes CODE: 1 WHEEL 50 FEET WITH TWO TURNS: WHEEL 50 FEET WITH TWO TURNS - STEP 1: Does the patient complete the activity by him/herself with no assistance (physical, verbal/nonverbal cueing, setup/clean-up)? No. WHEEL 50 FEET WITH TWO TURNS - STEP 2: Does the patient need only setup/clean-up assistance from one helper? No. WHEEL 50 FEET WITH TWO TURNS - STEP 3: Does the patient need only verbal/nonverbal cueing or touching/steadying/contact guard assistance fro m one helper? Yes. 1. [id number] ADMISSION PERFORMANCE: Supervision or touching assistance CODE: 04 INDICATE THE TYPE OF WHEELCHAIR/SCOOTER USED: RR1. INDICATE THE TYPE OF WHEELCHAIR/SCOOTER USED.: Manual CODE: 1 WHEEL 150 FEET: WHEEL 150 FEET - STEP 1: Does the patient complete the activity by him/herself with no assistance (physical, verbal/nonverbal cueing, setup/clean-up)? No. WHEEL 150 FEET - STEP 2: Does the patient need only setup/clean-up assistance from one helper? No. WHEEL 150 FEET - STEP 3: Does the patient need only verbal/nonverbal cueing or touching/steadying/contact guard assistance fro m one helper? Yes. 1. [id number] ADMISSION PERFORMANCE: Supervision or touching assistance CODE: 04 INDICATE THE TYPE OF WHEELCHAIR/SCOOTER USED: SS1. INDICATE THE TYPE OF WHEELCHAIR/SCOOTER USED.: Manual CODE: 1 BLADDER AND BOWEL: H350. BLADDER CONTINENCE (3-DAY ASSESSMENT PERIOD): Always continent (no documented incontinence) CODE: 0 H400. BOWEL CONTINENCE (3-DAY ASSESSMENT PERIOD): Always continent CODE: 0 SIGNATURE PANEL: The following modified sections: 1. [id number] Admission Performance, 1. [id number] Admission Performance, 1. [id number] Admission Performance, 1. [id number] Admission Performance, 1. [id number] Admission Performance, 1. HA1647w Admission Performance, 1. [id number] Admission Performance, 1. [id number] Admission Performance , 1. [id number] Admission Performance, Q1. Does the patient use a wheelchair/scooter?, 1. [id number] Admiss ion Performance, RR1. Indicate the type of wheelchair/scooter used., 1. [id number] Admission Performance , Code, 1. [id number] Admission Performance, Code, SS1. Indicate the type of wheelchair/scooter used., H 350. Bladder Continence (3-day assessment period), H400. Bowel Continence (3-day assessment period) w ere [electronically] signed by Servando AguillonNMena on ThuJan 25 2020 14:10:49 GMT-0500 ( Day light Time)
[2020-01-25] MEDS: ACETAMINOPHEN 325 MG TABLET PO PRN ×2 (14:59→20:36)
[2020-01-25] MEDS ORDERED: BISACODYL 10 MG RECTAL SUPP PR PRN (16:16)
--- NOTE | 2020-01-25 16:50 | R.HP ---
HISTORY AND PHYSICAL FACILITY: [facility] ENCOUNTER DATE AND TIME: 01/25/2020 16:39 (CDT) MR#: [id number] NAME SO JAMES ADDRESS: [address] [place] [address] [address] [facility] CITY: [place] [address]IP [address] PHONE: DATE OF : 1940 AGE: 79 SSN# [id number] GENDER: Female DEXTERITY Right-handed MARITAL STATUS RACE Unknown race PRE-HOSPITAL LIVING SETTING 01 - Home (private home/apt. board/care, assisted living, long term, transitional living) PRE-HOSPITAL LIVING WITH Family/Relatives ENCOUNTER PHYSICIAN: Dr. Nathan Grove M.D. REFERRING DOCTOR: YULI HILL DO DATE OF ADMISSION: 01/24/2020 12:00 (CDT) REFERRING FACILITY [facility] PRIMARY CARE PHYSICIAN JUN ACOSTA MD HOME TYPE AND DETAILS: Type of home: single family house # of levels in the residence: 1 # of steps within the residence: 0 # of steps to enter the residence: 1 ONSET DATE: 01/21/2020 PRIMARY DIAGNOSIS-RELATED SURGERIES: No surgeries related to the primary diagnosis were performed. HISTORY OF PRESENT ILLNESS (HPI): Pt. is a 79 yo Right-handed female of unknown race. On 01/21/2020 she was admitted to [facility] with diagnosis BILATERAL AVULSION TO LOWER EXTRE MITIES. Her impairment category is Debility 16 - Debility (16). Pre-morbidly, Pt. was independent/mod-I in Locomotion, Balance, Social Cognition, Transfers Control, Sphincter Control, Self-Care, Communication, and Endurance; and she had good Endurance, Self-Care, Co mmunication, Safety Awareness, and Transfers Control. Currently, she has deficits of Balance, Safety Awareness, Locomotion, Endurance, Sphincter Control, a nd Transfers Control. Pt. is now referred to [facility] for acute in-patient rehabilitation in order to maximize patient's functional independence in activities of daily living, strength, ROM, and mobi lity. Patient has realistic goal of being discharged at assistance level 6-Fly to reside at Home with Fam lisandro/Relatives. So James is a 79 year old independent female that lives in an independently at home and takes care of herself and her , Don. She performs all her own ADLs and IADLs. Prior to COVID she was seeing her PCP regularly in [place] where she lives. Mrs. James admitted to [facility] for a fall in her gravel driveway injuring both knees and hand causing open wounds. She would most definitely benefit from wound care and acute inpatient therapy. This has caused Mrs. James to become severely debilitated and unable to live at her prior level of activity at home. She was unable to transfer out of the fall and was transferred to the emergency room. It is reasonable and necessary for the patient to come to acute inpatient rehab for approximately 7-10 days in order to return to her prior level of living for her and her . The patient has a history of CAD, HTN, A-fib, UTI, COPD, GERD, arthritis, pacemaker and stents in bilateral LE. She is now being transferred to [facility] rehabilitation and is medically stable with relatively stable labs. He is now medically stable but in need of 24 hour nursing, doctor supervision and oversight while receiving expected to participate in 3 hours of therapy a day/15 hours per week and receive care with intensive interdisciplinary approach. COVID-19 screening performed; spoke with patient via phone. Patient denies new onset of fever, cough, difficulty breathing, sore throat, body aches and non-allergy nasal congestion in the past 24 hours. Patient denies travel outside of [place] in the past 14 days. Patient denies any contact with someone who has a confirmed diagnosis of or is under investigation for COVID-19 in the past 14 days. Patient has been tested negative for COVID- 19. MEDICATION ALLERGIES: No Known Drug Allergies (NKDA) ENVIRONMENTAL ALLERGIES: - Substance Allergies None Known - Other Allergies None Known PAST MEDICAL HISTORY: CORONARY ARTERY DISEASE HYPERTENSION COPD CHRONIC GASTRESOPHAGEAL REFLUX DISEASE ARTHRITIS PAST SURGICAL HISTORY: PACEMAKER APPENDECTOMY HYSTERECTOMY TONSILLECTOMY BILATERAL FOOT SURGERY STENTS IN BILATERAL LOWER EXTREMITIES BILATERAL CATARACT SURGERY SOCIAL HISTORY: - Home Living Family/Relatives REVIEW OF SYSTEMS: - Gen No Chills Fatigue No Fever - Eyes No Double Vision No itchiness - ENMT No Difficulty Swallowing - CVS No Chest Discomfort No Chest Pain Fatigue No Weight Gain - Resp No Cough No Shortness of Breath - GI Continent No Abdominal Pain No Constipation No Diarrhea - Continent No Kidney Pain No Painful Urination No Urinary Urgency - MSK No Joint Pain Muscle Cramps Stiffness - Skin No Itching No Rash No Suspicious Lesions - Neuro Coordination Difficulty No Difficulty with Concentration No Memory Loss No Seizures Weakness - Psych No Anxiety No Depression No HIV Exposure No Persistent Infections No Seasonal Allergies - Endo No Cold/Heat Intolerance No Excessive Hunger No Excessive Thirst No Excessive Urination PHYSICAL EXAM - Gen Alert and awake Lying in bed No apparent distress Oriented to: person, time, and place - Skin No skin breakdown. Normacephalic - Eyes No abnormalities - ENMT No abnormalities - Neck No abnormalities - CVS RRR - Chest Clear - Resp Clear to auscultation - Abd Soft - GI Non distended Deferred - No abnormalities - Ext Mild bilateral lower extremity edema. - MSK 4+/5 weakness in both lower extremities. - Neuro No focal deficits - Psych No abnormalities VITAL SIGNS Temperature: 98/.1 F SBP/DBP: 109-98/48-61 Pulse: 60 Resp: 16 NURSING: - Shower allowing shower ACTIVITIES OOB only with supervision QI SCORES: - Self-Care A. Eating 03-Partial/moderate assistance B. Oral hygiene 03-Partial/moderate assistance C. Toileting hygiene 88-Not attempted due to medical condition or safety concerns E. Shower/bathe self 03-Partial/moderate assistance F. Upper body dressing 88-Not attempted due to medical condition or safety concerns G. Lower body dressing 88-Not attempted due to medical condition or safety concerns H. Putting on/taking off footwear 88-Not attempted due to medical condition or safety concerns - Mobility A. Roll left and right 03-Partial/moderate assistance B. Sit to lying 03-Partial/moderate assistance C. Lying to sitting on side of bed 03-Partial/moderate assistance D. Sit to stand 03-Partial/moderate assistance E. Chair/ggh-uw-bopgg transfer 03-Partial/moderate assistance F. Toilet transfer 03-Partial/moderate assistance G. Car transfer 88-Not attempted due to medical condition or safety concerns I. Walk 10 feet 88-Not attempted due to medical condition or safety concerns J. Walk 50 feet with two turns 88-Not attempted due to medical condition or safety concerns K. Walk 150 feet 88-Not attempted due to medical condition or safety concerns L. Walking 10 feet on uneven surfaces 88-Not attempted due to medical condition or safety concerns M. 1 step (curb) 88-Not attempted due to medical condition or safety concerns N. 4 steps 88-Not attempted due to medical condition or safety concerns O. 12 steps 88-Not attempted due to medical condition or safety concerns P. Picking up object 03-Partial/moderate assistance R. Wheel 50 feet with two turns 88-Not attempted due to medical condition or safety concerns S. Wheel 150 feet 88-Not attempted due to medical condition or safety concerns - Bladder and Bowel Bladder continence 3-Incontinent daily Bowel continence 0-Always continent - Endurance Fair - Balance Fair - Safety Awareness Fair CURRENT FUNC. DEFICITS: Self-Care, Mobility, Endurance, Balance, and Safety Awareness MEDICATIONS: - Other See attached MAR (Medication Administration Record) ASSESSMENT: Pt. is a 79 yo Right-handed female of unknown race.On 01/21/2020 she was admitted to [facility] with diagnosis BILATERAL AVULSION TO LOWER EXTREMITIES.Her impairment category is Debility 16 - D ebility (16).Pre-morbidly, Pt. was independent/mod-I in Locomotion, Balance, Social Cognition, Transf ers Control, Sphincter Control, Self-Care, Communication, and Endurance; and she had good Endurance, Self-Care, Communication, Safety Awareness, and Transfers Control.Currently, she has deficits of Hany nce, Safety Awareness, Locomotion, Endurance, Sphincter Control, and Transfers Control.Pt. is now ref erred to [facility] for acute in-patient rehabilitation in order to maximize p atient's functional independence in activities of daily living, strength, ROM, and mobility.- Rehab G oal Patient has realistic goal of being discharged at assistance level 6-Fly to reside at Home with Fam lisandro/Relatives. So James is a 79 year old independent female that lives in an independently at home and takes care of herself and her , Darian. She performs all her own ADLs and IADLs. Prior to [facility] she was seeing her PCP regularly in [place] where she lives. Mrs. James admitted to [facility] for a fall in her gravel driveway injuring both knees and hand causing open wounds. She would most definitely benefit from wound care and acute inpatient therapy. This has caused Mrs. James to become severely debilitated and unable to live at her prior level of activity at home. She was unable to transfer out of the fall and was transferred to the emergency room. It is reasonable and necessary for the patient to come to acute inpatient rehab for approximately 7-10 days in order to return to her prior level of living for her and her . The patient has a history of CAD, HTN, A-fib, UTI, COPD, GERD, arthritis, pacemaker and stents in bilateral LE. She is now being transferred to [facility] rehabilitation and is medically stable with relatively stable labs. He is now medically stable but in need of 24 hour nursing, doctor supervision and oversight while receiving expected to participate in 3 hours of therapy a day/15 hours per week and receive care with intensive interdisciplinary approach. COVID-19 screening performed; spoke with patient via phone. Patient denies new onset of fever, cough, difficulty breathing, sore throat, body aches and non-allergy nasal congestion in the past 24 hours. Patient denies travel outside of [place] in the past 14 days. Patient denies any contact with someone who has a confirmed diagnosis of or is under investigation for COVID-19 in the past 14 days. Patient has been tested negative for COVID- 19.REHAB PLAN: - Physical Therapy Gait dysfunction - to improve, our physical therapists will perform initial evaluation of pt's status upon admission and devise an individualized program for Gait Training, and Wheel Chair mobility Inability to transfer - to improve, our physical therapists will perform initial evaluation of pt's s tatus upon admission and devise an individualized program for Bed mobility Need for home safety evaluation - to improve, our physical therapists will perform initial evaluation of pt's status upon admission and devise an individualized program for Home Evaluation Need in caregiver upon discharge - to improve, our physical therapists will perform initial evaluatio n of pt's status upon admission and devise an individualized program for Caregiver Training New precaution - to improve, our physical therapists will perform initial evaluation of pt's status u sanchez admission and devise an individualized program for Patient precaution education Edema - to improve, our physical therapists will perform initial evaluation of pt's status upon admi ssion and devise an individualized program for Elevation Training, and Lymphedema Therapy Poor balance - to improve, our physical therapists will perform initial evaluation of pt's status upo n admission and devise an individualized program for Balance Training Poor endurance - to improve, our physical therapists will perform initial evaluation of pt's status u sanchez admission and devise an individualized program for Endurance Training Weakness - to improve, our physical therapists will perform initial evaluation of pt's status upon ad mission and devise an individualized program for Aquatic Therapy, Neuromuscular Reeducation, and Stre ngthening Achieving independence - to improve, our physical therapists will perform initial evaluation of pt's status upon admission and devise an individualized program for Community Reintegration Activities - Occupational Therapy Need for career representative - to improve, our occupation therapists will perform initial evaluation of pt's s tatus upon admission and devise an individualized program for Caregiver Training Weakness - to improve, our occupation therapists will perform initial evaluation of pt's status upon admission and devise an individualized program for Aquatic Therapy, Balance, Endurance, UE ROM, and U E strengthening MEDICAL PLAN: - Diet Type Start Regular - Diet - Liquid Texture Start Regular - Tube Feed Start N/A - Other See attached MAR (Medication Administration Record) - Diet - Solid Texture Regular - Shower shower DISCHARGE PLAN: - Estimated Length of Stay (days) 13. - Consensus on plan Discharge plan has been discussed with primary caregiver. Patient/Family is in agreement with the tyrone n. Primary caregiver is in agreement with the plan. - Patient/Family Goals Return home independently. - Planned Living Setting Upon Discharge Home, to live with Family/Relatives. Transitional Living. SIGNATURE PANEL: (CDT)
--- NOTE | 2020-01-25 16:51 | PAPE ---
POST ADMISSION PHYSICIAN EVALUATION PATIENT: [facility] MR# [id number] REFERRING DOCTOR YULI HILL DO PRIMARY CARE PHYSICIAN JUN ACOSTA MD EVALUATION DATE AND TIME 01/25/2020 16:49 (CDT) NAME SO JAMES DATE OF 1940 AGE 79 PHONE SSN# [id number] GENDER female EVALUATING PHYSICIAN Dr. Nathan Grove M.D. ADMISSION DIAGNOSIS: BILATERAL AVULSION TO LOWER EXTREMITIES ONSET DATE 01/21/2020 POST-ADMISSION FUNCTIONAL/MEDICAL STATUS: - Bladder Same accident frequency: Ind - No accidents in the past 7 days - Bowel Same accident frequency: Ind - No accidents in the past 7 days - Walking Same score based on distance walked: 0(N/A) - Wheelchair Same score based on distance traveled: 0(N/A) STATUS CHANGE EVALUATION: No change in Functional or Medical Status is identified compared with Pre-Admission screening. PATIENT NEEDS CLOSE MEDICAL SUPERVISION BY A REHABILITATION PHYSICIAN FOR: Coordination of Treatment Team PATIENT REQUIRES 24X7 REHAB NURSING FOR MEDICAL AND FUNCTIONAL MGT. OF THE FOLLOWING DEFICITS: Disease Management Medication Management Patient/Family Education Providing Safe Environment PATIENT REQUIRES INTENSIVE, COORDINATED INTERDISCIPLINARY APPROACH TO REHAB: Arranging Home Equipment/Services Discharge Planning Family Intervention/Training Handicraft Or Hobby Shop Manager/Case Management LIST OF IDENTIFIED AND POTENTIAL PROBLEMS: Alteration in leisure activities Bladder, Incontinence Bowel, Incontinence Infection, Actual or Potential Mobility Impaired Pain, Alteration in Comfort Self Care Deficit Skin Integrity, Actual or Potential Urinary Tract Infection (UTI), Actual or Potential PATIENT COULD BE AT RISK FOR COMPLICATIONS FROM ADVERSE MEDICAL CONDITIONS DUE TO HIS/HER COMORBIDITI ES AND THE RIGORS OF THE INTENSIVE REHABILLITATION PROGRAM. METHODS OR INTERVENTIONS TO AVOID COMPLIC ATIONS INCLUDE: - Infection Clinical staff to assess and manage the signs and symptoms of infection including fever, redness, war mth, etc. - Urinary Tract Infection - Falls Patient will be evaluated for Fall Precautions and will be placed on Fall Precautions as indicated pe r protocol. - Skin Breakdown Nursing will assess skin daily using assessment tool and will place on Skin Breakdown Precautions as indicated per protocol. - Pain Clinical staff may employ non-medication methods such as massage, distraction, decrease stimulus, etc . as needed. Clinical staff will assess patient's pain level every shift per protocol to assess and e nsure pain management effectiveness. Medications will be given and the pain level re-assessed. PRELIMINARY PLAN OF CARE: - Physical Therapy Patient needs Physical Therapy for a daily minimum of 1.5 hours at least 5 out of 7 days, to improve: Mobility, Strengthening, Transfers, Stretching, ROM, Endurance, Ability to manage stairs, Gait, and Balance. - Speech Therapy Patient needs Speech Therapy for a daily minimum of 0.5 hours at least 5 out of 7 days, to improve: S wallowing, Cognition, Language Skills, and Compensatory Strategies. - Rehabilitation Nursing Patient requires 24x7 Rehabilitation Nursing for: Pain Issues, Identifying and preventing risk factor s, Monitoring and reporting current medical conditions, Assisting with ambulation and transfer, Miguel Ángel ting with all ADL-s, Teaching patients about disease process and medications, Family teaching, Provid ing safe environment, Bowel and Bladder Issues, Skin Integrity, and Medication Management. Patient needs Handicraft Or Hobby Shop Manager and/or Case Management for: Discharge Planning, Arranging Home Equipmen t or Services, and Family Interventions. - Dietary and Nutrition Services Patient needs Dietary and Nutrition Services for: Adequate Nutrition, Nutritional Supplements, and Nu tritional Education. - Occupational Therapy Patient needs Occupational Therapy for a daily minimum of 1.5 hours at least 5 out of 7 days, to impr ove Activities of Daily Living, including: Eating, Grooming, Bathing, Dressing, Toileting, Toilet Tra nsfers, Community Reintegration, Higher functional activities, Adaptive Equipment, Splinting, Househo ld Tasks, and Other activities as determined. QI SCORES: - Self-Care A. Eating 03-Partial/moderate assistance B. Oral hygiene 03-Partial/moderate assistance C. Toileting hygiene 88-Not attempted due to medical condition or safety concerns E. Shower/bathe self 03-Partial/moderate assistance F. Upper body dressing 88-Not attempted due to medical condition or safety concerns G. Lower body dressing 88-Not attempted due to medical condition or safety concerns H. Putting on/taking off footwear 88-Not attempted due to medical condition or safety concerns - Mobility A. Roll left and right 03-Partial/moderate assistance B. Sit to lying 03-Partial/moderate assistance C. Lying to sitting on side of bed 03-Partial/moderate assistance D. Sit to stand 03-Partial/moderate assistance E. Chair/zcp-ej-txugm transfer 03-Partial/moderate assistance F. Toilet transfer 03-Partial/moderate assistance G. Car transfer 88-Not attempted due to medical condition or safety concerns I. Walk 10 feet 88-Not attempted due to medical condition or safety concerns J. Walk 50 feet with two turns 88-Not attempted due to medical condition or safety concerns K. Walk 150 feet 88-Not attempted due to medical condition or safety concerns L. Walking 10 feet on uneven surfaces 88-Not attempted due to medical condition or safety concerns M. 1 step (curb) 88-Not attempted due to medical condition or safety concerns N. 4 steps 88-Not attempted due to medical condition or safety concerns O. 12 steps 88-Not attempted due to medical condition or safety concerns P. Picking up object 03-Partial/moderate assistance R. Wheel 50 feet with two turns 88-Not attempted due to medical condition or safety concerns S. Wheel 150 feet 88-Not attempted due to medical condition or safety concerns - Bladder and Bowel Bladder continence 3-Incontinent daily Bowel continence 0-Always continent - Endurance Fair - Balance Fair - Safety Awareness Fair POTENTIAL FUNCTIONAL GOALS FOR PATIENT TO ACHIEVE BY DISCHARGE: - Safety Precaution Patient will remain free from falls or injury at time of discharge. - Bed Mobility Patient will perform bed mobility at 4-Anil level of assistance. - Transfers Patient will complete transfers from bed to chair at 4-Anil level of assistance. - Mobility Patient will ambulate 150 ft with 4-Anil level of assistance with RW. PATIENT REHAB POTENTIAL Servando JAMES is able and expected to receive 3 hours of individualized therapy daily on at least 5 o f every 7 days Servando JAMES's prognosis for significant practical improvement within a reasonable period of time ap pears Good Expected level of measurable improvement will be of a practical value to Servando JAMES's functional c apacity or adaptations to impairments Has a viable Discharge Plan Medically appropriate; condition is sufficiently stable to participate in intensive rehab program DISCHARGE PLAN: - Estimated Length of Stay (days) 13. - Consensus on plan Discharge plan has been discussed with primary caregiver. Patient/Family is in agreement with the tyrone n. Primary caregiver is in agreement with the plan. - Patient/Family Goals Return home independently. - Planned Living Setting Upon Discharge Home, to live with Family/Relatives. Transitional Living. CONCLUSION ON REHABILITATION NECESSITY: I have evaluated patient's pre-admission functional status and, comparing it to the patient's post-ad mission functional status now, I conclude that the pre-admission assessment was accurate. Patient's c ondition on admission supports the medical necessity of admission to IR[facility]. It is safe to proceed with patient's therapy program. SIGNATURE PANEL: (CDT)
[2020-01-25] MEDS: MAGNESIUM HYDROXIDE 8% 30 ML PO PRN (16:56)
[2020-01-25] MEDS: DOCUSATE NA/SENNA CONC 1 TAB PO PRN (20:36)
[2020-01-25] MEDS: CRANBERRY FRUIT EXTRACT 200 MG CAP PO SCH (20:36)
[2020-01-25] MEDS: PROMOD 30 ML DOSE PO SCH (20:37)
[2020-01-25] MEDS: MELATONIN 3 MG TABLET PO PRN (20:58)
[2020-01-26] MEDS: ACETAMINOPHEN 325 MG TABLET PO PRN ×4 (01:40→19:36)
[2020-01-26] MEDS: SOTALOL HCL 80 MG TAB PO SCH ×2 (05:31→16:49)
[2020-01-26] MEDS: MAGNESIUM HYDROXIDE 8% 30 ML PO PRN (07:16)
[2020-01-26] MEDS: PANTOPRAZOLE 40MG TABLET PO SCH (07:16)
[2020-01-26] MEDS: ROFLUMILAST 500 MCG TABLET PO SCH ×2 (08:00→08:07)
[2020-01-26] MEDS: [UNRECOGNIZED DRUG - OTHER] PO SCH (08:00)
[2020-01-26] MEDS: [UNRECOGNIZED DRUG - OTHER] IH SCH (08:05)
[2020-01-26] MEDS: DOCUSATE NA 100 MG CAP PO SCH ×2 (08:07→19:35)
[2020-01-26] MEDS: CRANBERRY FRUIT EXTRACT 200 MG CAP PO SCH ×2 (08:08→19:36)
[2020-01-26] MEDS: SMZ./TMP. 800/160 MG TABLET PO SCH (08:08)
[2020-01-26] MEDS: ASPIRIN 81 MG CHEWABLE TABLET PO SCH (08:08)
[2020-01-26] MEDS: ASCORBIC ACID 500 MG TABLET PO SCH (08:08)
[2020-01-26] MEDS: FOLIC ACID 400 MCG PO SCH (08:09)
[2020-01-26] MEDS: PROMOD 30 ML DOSE PO SCH ×2 (08:10→19:35)
--- NOTE | 2020-01-26 09:44 | P.RH.PN ---
Estimated Length of Stay: 15 Expected Discharge Date: 02/07/20 Discharge Disposition Plan: Home Family Support: Yes Half-Way Goal: Mobility, Transfers, Self Care Vital Signs: Last Vital Signs Temp 97.2 F 01/26/20 07:10 Pulse 61 01/26/20 07:10 Resp 16 01/26/20 07:10 BP 141/68 H 01/26/20 07:10 Pulse Ox 100 01/26/20 07:10 Laboratory: Laboratory Last Values WBC 7.4 K/uL (4.3-10.9) 01/25/20 05:47 RBC 3.08 M/uL (3.86-4.86) L 01/25/20 05:47 Hgb 10.1 g/dL (12.0-15.0) L 01/25/20 05:47 Hct 29.4 % (36.0-45.0) L 01/25/20 05:47 MCV 95.4 fL (80-100) D 01/25/20 05:47 MCH 32.7 pg (27.0-35.0) 01/25/20 05:47 MCHC 34.2 g/dL (32.0-36.0) 01/25/20 05:47 RDW 13.0 % (12.1-15.2) 01/25/20 05:47 Plt Count 195 K/uL (152-406) 01/25/20 05:47 MPV 8.9 fL (7.6-11.3) 01/25/20 05:47 Neutrophils % 70.2 % (41.7-73.7) 01/25/20 05:47 Lymphocytes % 12.4 % (15.3-44.8) L 01/25/20 05:47 Monocytes % 14.1 % (3.3-12.3) H 01/25/20 05:47 Eosinophils % 2.7 % (0-4.4) 01/25/20 05:47 Basophils % 0.6 % (0-1.3) 01/25/20 05:47 Absolute Neutrophils 5.2 K/uL (1.8-8.0) 01/25/20 05:47 Absolute Lymphocytes 0.9 K/uL (0.7-4.9) 01/25/20 05:47 Absolute Monocytes 1.0 K/uL (0.1-1.3) 01/25/20 05:47 Absolute Eosinophils 0.2 K/uL (0-0.5) 01/25/20 05:47 Absolute Basophils 0.0 K/uL (0-0.5) 01/25/20 05:47 Sodium 139 mmol/L (136-145) 01/26/20 05:33 Potassium 5.0 mmol/L (3.5-5.1) 01/26/20 05:33 Chloride 108 mmol/L (98-107) H 01/26/20 05:33 Carbon Dioxide 27 mmol/L (21-32) 01/26/20 05:33 BUN 40 mg/dL (7-18) H 01/26/20 05:33 Creatinine 1.41 mg/dL (0.55-1.3) H 01/26/20 05:33 Estimated GFR 36 mL/min (=/>90) L 01/26/20 05:33 Glucose 97 mg/dL (74-106) 01/26/20 05:33 Calcium 8.0 mg/dL (8.5-10.1) L 01/26/20 05:33 Magnesium 2.4 mg/dL (1.8-2.4) 01/25/20 05:47 Albumin 2.8 g/dL (3.4-5.0) L 01/25/20 05:47 Prealbumin 14.5 mg/dL (20-40) L 01/25/20 05:47 Urine Color Yellow 01/24/20 15:00 Urine Appearance Cloudy 01/24/20 15:00 Urine pH 5.5 (5.0-7.0) 01/24/20 15:00 Ur Specific [place] 1.010 (1.005-1.030) 01/24/20 15:00 Glucose (UA)(Auto) Negative (NEG) 01/24/20 15:00 Urine Ketones Negative (NEG) 01/24/20 15:00 Urine Blood Negative (NEG) 01/24/20 15:00 Urine Nitrite Negative (NEG) 01/24/20 15:00 Urine Bilirubin Negative (NEG) 01/24/20 15:00 Urine Urobilinogen 0.2 mg/dL (0.2-1.0) 01/24/20 15:00 Ur Leukocyte Esterase 3+ (NEG) H 01/24/20 15:00 Urine RBC <5 /HPF (NONE SEEN) 01/24/20 15:00 Urine WBC 10-20 /HPF (<5) H 01/24/20 15:00 Ur Squamous Epith Cells 5-10 /HPF (NONE SEEN) H 01/24/20 15:00 Urine Bacteria <20 /HPF (<20) 01/24/20 15:00 Urine Culture Reflexed Not needed 01/24/20 15:00 Urine Total Protein Negative (NEG) 01/24/20 15:00 Weight: 106 lb Wound Present: No Closed Surgical Incision Present: No Negative Pressure Wound Therapy Present: No Physician Update: Labs reviewed and her SOCIAL MEDIA ANALYST is elevated but. She was very hypotensive with the SBP down to the 60s. She is minimum assistance walking 8'. She was independent previously and not using assistive devices. She will likely require a walker. Summary: Patient's care plan and dedicated intermodal truck driver goals have been reviewed and revised as necessary. Please see the Rehabilitation Signature page for all necessary signatures.
[2020-01-26] MEDS: COLLAGENASE 30 GM OINTMENT TOP SCH ×2 (11:58→13:11)
[2020-01-26] MEDS: LIDOCAINE 4% PATCH TOP SCH (13:07)
[2020-01-26] MEDS ORDERED: NA CHLORIDE 0.9% 1,000 ML IV SCH (19:00)
[2020-01-26] MEDS ORDERED: NA CHLORIDE 0.9% 1,000 ML ONE (19:11)
[2020-01-26] MEDS: MELATONIN 3 MG TABLET PO PRN (20:00)
[2020-01-27] MEDS: ACETAMINOPHEN 325 MG TABLET PO PRN ×3 (01:07→12:19)
[2020-01-27] MEDS: TRAMADOL HCL 50 MG TAB PO PRN ×2 (04:30→22:37)
[2020-01-27] MEDS: ONDANSETRON 4 MG (ODT) TAB PO PRN ×2 (04:36→22:37)
[2020-01-27] MEDS: SOTALOL HCL 80 MG TAB PO SCH ×2 (04:59→17:06)
[2020-01-27] MEDS: [UNRECOGNIZED DRUG - OTHER] PO SCH (08:00)
[2020-01-27] MEDS: DOCUSATE NA 100 MG CAP PO SCH ×2 (08:00→19:56)
[2020-01-27] MEDS: FOLIC ACID 400 MCG PO SCH (08:15)
[2020-01-27] MEDS: LIDOCAINE 4% PATCH TOP SCH (08:15)
[2020-01-27] MEDS: CRANBERRY FRUIT EXTRACT 200 MG CAP PO SCH ×2 (08:16→19:55)
[2020-01-27] MEDS: COLLAGENASE 30 GM OINTMENT TOP SCH (08:16)
[2020-01-27] MEDS: [UNRECOGNIZED DRUG - OTHER] IH SCH (08:16)
[2020-01-27] MEDS: ROFLUMILAST 500 MCG TABLET PO SCH (08:17)
[2020-01-27] MEDS: ASCORBIC ACID 500 MG TABLET PO SCH (08:19)
[2020-01-27] MEDS: PANTOPRAZOLE 40MG TABLET PO SCH (08:19)
[2020-01-27] MEDS: ASPIRIN 81 MG CHEWABLE TABLET PO SCH (08:21)
[2020-01-27] MEDS: FE SULF/FA/VIT B COMP & C TAB PO SCH (08:21)
[2020-01-27] MEDS: PROMOD 30 ML DOSE PO SCH ×2 (08:27→19:56)
[2020-01-28] MEDS: SOTALOL HCL 80 MG TAB PO SCH ×2 (05:26→17:39)
[2020-01-28] MEDS: ACETAMINOPHEN 325 MG TABLET PO PRN ×2 (07:12→17:43)
[2020-01-28] MEDS: [UNRECOGNIZED DRUG - OTHER] PO SCH (08:00)
[2020-01-28] MEDS: PANTOPRAZOLE 40MG TABLET PO SCH (08:45)
[2020-01-28] MEDS: ASPIRIN 81 MG CHEWABLE TABLET PO SCH (08:46)
[2020-01-28] MEDS: DOCUSATE NA 100 MG CAP PO SCH ×2 (08:46→19:56)
[2020-01-28] MEDS: ASCORBIC ACID 500 MG TABLET PO SCH (08:47)
[2020-01-28] MEDS: FE SULF/FA/VIT B COMP & C TAB PO SCH (08:47)
[2020-01-28] MEDS: FOLIC ACID 400 MCG PO SCH (08:48)
[2020-01-28] MEDS: CRANBERRY FRUIT EXTRACT 200 MG CAP PO SCH ×2 (08:49→19:54)
[2020-01-28] MEDS: [UNRECOGNIZED DRUG - OTHER] IH SCH (08:52)
[2020-01-28] MEDS: COLLAGENASE 30 GM OINTMENT TOP SCH (08:52)
[2020-01-28] MEDS: PROMOD 30 ML DOSE PO SCH ×2 (08:53→19:55)
[2020-01-28] MEDS: LIDOCAINE 4% PATCH TOP SCH (08:55)
[2020-01-28] MEDS: ZOLPIDEM TARTRATE 5 MG TABLET PO PRN (19:54)
[2020-01-29] MEDS: ONDANSETRON 4 MG (ODT) TAB PO PRN ×2 (03:11→23:42)
[2020-01-29] MEDS: TRAMADOL HCL 50 MG TAB PO PRN ×2 (03:11→23:40)
[2020-01-29] MEDS: SOTALOL HCL 80 MG TAB PO SCH ×2 (05:01→17:01)
[2020-01-29] MEDS: [UNRECOGNIZED DRUG - OTHER] PO SCH (08:00)
[2020-01-29] MEDS: DOCUSATE NA 100 MG CAP PO SCH ×2 (08:13→20:18)
[2020-01-29] MEDS: CRANBERRY FRUIT EXTRACT 200 MG CAP PO SCH ×2 (08:13→20:18)
[2020-01-29] MEDS: FE SULF/FA/VIT B COMP & C TAB PO SCH (08:13)
[2020-01-29] MEDS: ASPIRIN 81 MG CHEWABLE TABLET PO SCH (08:14)
[2020-01-29] MEDS: ASCORBIC ACID 500 MG TABLET PO SCH (08:14)
[2020-01-29] MEDS: ROFLUMILAST 500 MCG TABLET PO SCH (08:14)
[2020-01-29] MEDS: PANTOPRAZOLE 40MG TABLET PO SCH (08:15)
[2020-01-29] MEDS: COLLAGENASE 30 GM OINTMENT TOP SCH (08:17)
[2020-01-29] MEDS: [UNRECOGNIZED DRUG - OTHER] IH SCH (08:17)
[2020-01-29] MEDS: LIDOCAINE 4% PATCH TOP SCH (08:17)
[2020-01-29] MEDS: PROMOD 30 ML DOSE PO SCH ×2 (08:18→20:19)
[2020-01-29] MEDS: FOLIC ACID 400 MCG PO SCH (08:19)
[2020-01-29] MEDS: ACETAMINOPHEN 325 MG TABLET PO PRN (12:57)
[2020-01-29] MEDS: ZOLPIDEM TARTRATE 5 MG TABLET PO PRN (20:18)
[2020-01-30] MEDS: SOTALOL HCL 80 MG TAB PO SCH ×2 (05:03→16:57)
[2020-01-30 05:58] LABS: Potassium 5.1 mmol/L (3.5-5.1)
[2020-01-30 06:04] LABS: Absolute Lymphocytes (CBC) 1.8 K/uL (0.7-4.9); Basophils % 1.3 % (0-1.3); Lymphocytes % 22.5 % (15.3-44.8); MPV 8.3 fL (7.6-11.3); RBC Red Blood Cell Count 3.03 M/uL (3.86-4.86)
[2020-01-30] MEDS: PANTOPRAZOLE 40MG TABLET PO SCH (07:38)
[2020-01-30] MEDS: ACETAMINOPHEN 325 MG TABLET PO PRN ×2 (07:40→15:24)
[2020-01-30] MEDS: [UNRECOGNIZED DRUG - OTHER] IH SCH (07:45)
[2020-01-30] MEDS: ASPIRIN 81 MG CHEWABLE TABLET PO SCH (07:46)
[2020-01-30] MEDS: CRANBERRY FRUIT EXTRACT 200 MG CAP PO SCH ×2 (07:46→20:16)
[2020-01-30] MEDS: ASCORBIC ACID 500 MG TABLET PO SCH (07:46)
[2020-01-30] MEDS: DOCUSATE NA 100 MG CAP PO SCH ×2 (07:46→20:16)
[2020-01-30] MEDS: FOLIC ACID 400 MCG PO SCH (07:47)
[2020-01-30] MEDS: FE SULF/FA/VIT B COMP & C TAB PO SCH (07:48)
[2020-01-30] MEDS: PROMOD 30 ML DOSE PO SCH ×2 (07:48→20:15)
[2020-01-30] MEDS: [UNRECOGNIZED DRUG - OTHER] PO SCH (07:49)
[2020-01-30] MEDS: LIDOCAINE 4% PATCH TOP SCH (08:00)
[2020-01-30] MEDS: COLLAGENASE 30 GM OINTMENT TOP SCH (13:47)
--- NOTE | 2020-01-30 18:38 | R.PN ---
PROGRESS NOTES ENCOUNTER DATE AND TIME: 01/30/2020 18:30 (CDT) NAME SO JAMES DATE OF : 1940 DATE OF ADMISSION: 01/24/2020 12:00 (CDT) BILATERAL AVULSION TO LOWER EXTREMITIESCHIEF COMPLAINT: Debility and bilateral lower extremity avulsions SUBJECTIVE: Pt denied any depression. Pt denied any Shortness of Breath. WBC 7.8, Hgb 9.7, electrolytes were essentially normal except elevated BUN. Prealbumin was low at 14. 5. UA shows 3+ esterase and elevated WBC of 10-20. Ambulated 1250' with independence using a rolling walker. Up and down 15 steps with standby assistanc e. Ambulated 260' with contact guard assistance using a rolling walker. Propelled wheelchair 250' with s tandby assistance. Speech expression and comprehension is at modified independence. Toilet and tub tr ansfer with modified independence. VITAL SIGNS Temperature: 98.1 F SBP/DBP: 160/73 Pulse: 62 Resp: 16 MEDICATION ALLERGIES: No Known Drug Allergies (NKDA) ENVIRONMENTAL ALLERGIES: - Substance Allergies None Known - Other Allergies None Known NURSING: - Shower allowing shower ACTIVITIES OOB only with supervision THERAPIES: - Dietary and Nutrition Adequate Nutrition. Nutritional Education. Nutritional Supplements. PHYSICAL EXAM - Gen Alert and awake Lying in bed No apparent distress Oriented to: person, time, and place - Skin No skin breakdown. Normacephalic - Eyes No abnormalities - ENMT No abnormalities - Neck No abnormalities - CVS RRR - Chest Clear - Resp Clear to auscultation - Abd Soft - GI Non distended Deferred - No abnormalities - Ext Mild bilateral lower extremity edema. - MSK 4+/5 weakness in both lower extremities. - Neuro No focal deficits - Psych No abnormalities ASSESSMENT: Pt. is a 79 yo Right-handed female of unknown race.On 01/21/2020 she was admitted to [facility] with diagnosis BILATERAL AVULSION TO LOWER EXTREMITIES.Her impairment category is Debility 16 - D ebility (16).Pre-morbidly, Pt. was independent/mod-I in Locomotion, Balance, Social Cognition, Transf ers Control, Sphincter Control, Self-Care, Communication, and Endurance; and she had good Endurance, Self-Care, Communication, Safety Awareness, and Transfers Control.Currently, she has deficits of [place] n[place], Safety Awareness, Locomotion, Endurance, Sphincter Control, and Transfers Control.Pt. is now ref erred to [facility] for acute in-patient rehabilitation in order to maximize p atient's functional independence in activities of daily living, strength, ROM, and mobility.- Rehab G oal Patient has realistic goal of being discharged at assistance level 6-Fly to reside at Home with Fam lisandro/Relatives. MDM/PLAN: - Physical Therapy Gait dysfunction - to improve, our physical therapists will perform initial evaluation of pt's statu s upon admission and devise an individualized program for Gait Training, and Wheel Chair mobility Inability to transfer - to improve, our physical therapists will perform initial evaluation of pt's status upon admission and devise an individualized program for Bed mobility Need for home safety evaluation - to improve, our physical therapists will perform initial evaluatio n of pt's status upon admission and devise an individualized program for Home Evaluation Need in caregiver upon discharge - to improve, our physical therapists will perform initial evaluati on of pt's status upon admission and devise an individualized program for Caregiver Training New precaution - to improve, our physical therapists will perform initial evaluation of pt's status upon admission and devise an individualized program for Patient precaution education Edema - to improve, our physical therapists will perform initial evaluation of pt's status upon admis melida and devise an individualized program for Elevation Training, and Lymphedema Therapy Poor balance - to improve, our physical therapists will perform initial evaluation of pt's status up on admission and devise an individualized program for Balance Training Poor endurance - to improve, our physical therapists will perform initial evaluation of pt's status upon admission and devise an individualized program for Endurance Training Weakness - to improve, our physical therapists will perform initial evaluation of pt's status upon a dmission and devise an individualized program for Aquatic Therapy, Neuromuscular Reeducation, and Str engthening Achieving independence - to improve, our physical therapists will perform initial evaluation of pt's status upon admission and devise an individualized program for Community Reintegration Activities - Occupational Therapy Need for intensive care unit nurse - to improve, our occupation therapists will perform initial evaluation of pt's status upon admission and devise an individualized program for Caregiver Training Weakness - to improve, our occupation therapists will perform initial evaluation of pt's status upon admission and devise an individualized program for Aquatic Therapy, Balance, Endurance, UE ROM, and UE strengthening - Other See attached MAR (Medication Administration Record) - Diet Type Continue Regular - Diet - Liquid Texture Continue Regular - Tube Feed Continue N/A - Diet - Solid Texture Continue Regular - Shower allowing shower FUNCTIONAL STATUS: UPDATED AT WEEKLY TEAM CONFERENCE - Bladder Same accident frequency: 7-Ind - No accidents in the past 7 days - Bowel Same accident frequency: 7-Ind - No accidents in the past 7 days - Walking Same score based on distance walked: 0(N/A) - Wheelchair Same score based on distance traveled: 0(N/A) FUNCTIONAL STATUS: - Self-Care A. Eating Fly B. Grooming Fly C. Bathing sup D. Dressing - Upper sup E. Dressing - Lower sup F. Toileting sup - Sphincter Control G. Bladder control Fly H. Bowel control Fly - Transfers Control I. Bed/Chair/Wheelchair Fly J. Toilet Fly K. Tub/Shower sup - Locomotion L. Walk/Wheelchair (B) Fly M. Stairs Fly - Communication N. Comprehension (B) Fly O. Expression (B) Fly - Social Cognition P. Social Interaction Fly Q. Problem Solving Fly R. Memory Fly - Endurance Good - Balance Good - Safety Awareness Good QI SCORES: - Self-Care A. Eating 03-Partial/moderate assistance B. Oral hygiene 03-Partial/moderate assistance C. Toileting hygiene 88-Not attempted due to medical condition or safety concerns E. Shower/bathe self 03-Partial/moderate assistance F. Upper body dressing 88-Not attempted due to medical condition or safety concerns G. Lower body dressing 88-Not attempted due to medical condition or safety concerns H. Putting on/taking off footwear 88-Not attempted due to medical condition or safety concerns - Mobility A. Roll left and right 03-Partial/moderate assistance B. Sit to lying 03-Partial/moderate assistance C. Lying to sitting on side of bed 03-Partial/moderate assistance D. Sit to stand 03-Partial/moderate assistance E. Chair/wwy-bv-[id number] transfer 03-Partial/moderate assistance F. Toilet transfer 03-Partial/moderate assistance G. Car transfer 88-Not attempted due to medical condition or safety concerns I. Walk 10 feet 88-Not attempted due to medical condition or safety concerns J. Walk 50 feet with two turns 88-Not attempted due to medical condition or safety concerns K. Walk 150 feet 88-Not attempted due to medical condition or safety concerns L. Walking 10 feet on uneven surfaces 88-Not attempted due to medical condition or safety concerns M. 1 step (curb) 88-Not attempted due to medical condition or safety concerns N. 4 steps 88-Not attempted due to medical condition or safety concerns O. 12 steps 88-Not attempted due to medical condition or safety concerns P. Picking up object 03-Partial/moderate assistance R. Wheel 50 feet with two turns 88-Not attempted due to medical condition or safety concerns S. Wheel 150 feet 88-Not attempted due to medical condition or safety concerns - Bladder and Bowel Bladder continence 3-Incontinent daily Bowel continence 0-Always continent - Endurance Fair - Balance Fair - Safety Awareness Fair [facility]IC[facility]: Self-Care, Mobility, Endurance, Balance, and Safety Awareness SIGNATURE PANEL: (CDT)
[2020-01-31] MEDS: ACETAMINOPHEN 325 MG TABLET PO PRN ×4 (01:35→19:22)
[2020-01-31] MEDS: SOTALOL HCL 80 MG TAB PO SCH ×2 (05:05→17:23)
[2020-01-31] MEDS: [UNRECOGNIZED DRUG - OTHER] PO SCH (08:00)
[2020-01-31] MEDS: FE SULF/FA/VIT B COMP & C TAB PO SCH (08:00)
[2020-01-31] MEDS: FOLIC ACID 400 MCG PO SCH (08:17)
[2020-01-31] MEDS: [UNRECOGNIZED DRUG - OTHER] IH SCH (08:19)
[2020-01-31] MEDS: ROFLUMILAST 500 MCG TABLET PO SCH (08:20)
[2020-01-31] MEDS: DOCUSATE NA 100 MG CAP PO SCH ×2 (08:20→19:19)
[2020-01-31] MEDS: COLLAGENASE 30 GM OINTMENT TOP SCH (08:20)
[2020-01-31] MEDS: CRANBERRY FRUIT EXTRACT 200 MG CAP PO SCH ×2 (08:21→19:15)
[2020-01-31] MEDS: PANTOPRAZOLE 40MG TABLET PO SCH (08:21)
[2020-01-31] MEDS: ASCORBIC ACID 500 MG TABLET PO SCH (08:22)
[2020-01-31] MEDS: ASPIRIN 81 MG CHEWABLE TABLET PO SCH (08:55)
[2020-01-31] MEDS: PROMOD 30 ML DOSE PO SCH ×2 (08:56→19:20)
[2020-01-31] MEDS: LIDOCAINE 4% PATCH TOP SCH (15:02)
--- NOTE | 2020-01-31 15:32 | FAST ---
[employer] FORM SHIFT START DATE/TIME: 01/31/2020 07:00 (CDT) SHIFT END DATE/TIME: 01/31/2020 19:00 (CDT) NAME SO JAMES DATE OF : 1940 DATE OF ADMISSION: 01/24/2020 12:00 (CDT) PHONE: AGE: 79 N# [id number] GENDER: Female ENCOUNTER PHYSICIAN: Dr. Nathan Grove M.D. ADMISSION DIAGNOSIS: - Debility 16 - Debility (16) BILATERAL AVULSION TO LOWER EXTREMITIES. EATING: EATING - STEP 1: Does the patient complete the activity by him/herself with no assistance (physical, verbal/nonverbal cueing, setup/clean-up)? No. EATING - STEP 2: Does the patient need only setup/clean-up assistance from one helper? Yes. 1. [id number] ADMISSION PERFORMANCE: Setup or clean-up assistance CODE: 05 ORAL HYGIENE: ORAL HYGIENE - STEP 1: Does the patient complete the activity by him/herself with no assistance (physical, verbal/nonverbal cueing, setup/clean-up)? No. ORAL HYGIENE - STEP 2: Does the patient need only setup/clean-up assistance from one helper? Yes. 1. [id number] ADMISSION PERFORMANCE: Setup or clean-up assistance CODE: 05 TOILETING HYGIENE: TOILETING HYGIENE - STEP 1: Does the patient complete the activity by him/herself with no assistance (physical, verbal/nonverbal cueing, setup/clean-up)? No. TOILETING HYGIENE - STEP 2: Does the patient need only setup/clean-up assistance from one helper? Yes. 1. [id number] ADMISSION PERFORMANCE: Setup or clean-up assistance CODE: 05 BATHING: Not assessed/no information CODE: - DRESSING - UPPER BODY: DRESSING - UPPER BODY - STEP 1: Does the patient complete the activity by him/herself with no assistance (physical, verbal/nonverbal cueing, setup/clean-up)? No. DRESSING - UPPER BODY - STEP 2: Does the patient need only setup/clean-up assistance from one helper? Yes. 1. [id number] ADMISSION PERFORMANCE: Setup or clean-up assistance CODE: 05 DRESSING - LOWER BODY: DRESSING - LOWER BODY - STEP 1: Does the patient complete the activity by him/herself with no assistance (physical, verbal/nonverbal cueing, setup/clean-up)? No. DRESSING - LOWER BODY - STEP 2: Does the patient need only setup/clean-up assistance from one helper? No. DRESSING - LOWER BODY - STEP 3: Does the patient need only verbal/nonverbal cueing or touching/steadying/contact guard assistance fro m one helper? Yes. 1. [id number] ADMISSION PERFORMANCE: Supervision or touching assistance CODE: 04 PUTTING ON/TAKING OFF FOOTWEAR: FOOTWEAR - STEP 1: Does the patient complete the activity by him/herself with no assistance (physical, verbal/nonverbal cueing, setup/clean-up)? No. FOOTWEAR - STEP 2: Does the patient need only setup/clean-up assistance from one helper? No. FOOTWEAR - STEP 3: Does the patient need only verbal/nonverbal cueing or touching/steadying/contact guard assistance fro m one helper? Yes. 1. [id number] ADMISSION PERFORMANCE: Supervision or touching assistance CODE: 04 ROLL LEFT AND RIGHT: ROLL LEFT AND RIGHT - STEP 1: Does the patient complete the activity by him/herself with no assistance (physical, verbal/nonverbal cueing, setup/clean-up)? No. ROLL LEFT AND RIGHT - STEP 2: Does the patient need only setup/clean-up assistance from one helper? No. ROLL LEFT AND RIGHT - STEP 3: Does the patient need only verbal/nonverbal cueing or touching/steadying/contact guard assistance fro m one helper? Yes. 1. [id number] ADMISSION PERFORMANCE: Supervision or touching assistance CODE: 04 SIT TO LYING: SIT TO LYING - STEP 1: Does the patient complete the activity by him/herself with no assistance (physical, verbal/nonverbal cueing, setup/clean-up)? No. SIT TO LYING - STEP 2: Does the patient need only setup/clean-up assistance from one helper? No. SIT TO LYING - STEP 3: Does the patient need only verbal/nonverbal cueing or touching/steadying/contact guard assistance fro m one helper? Yes. 1. [id number] ADMISSION PERFORMANCE: Supervision or touching assistance CODE: 04 LYING TO SITTING: LYING TO SITTING ON SIDE OF BED - STEP 1: Does the patient complete the activity by him/herself with no assistance (physical, verbal/nonverbal cueing, setup/clean-up)? No. LYING TO SITTING ON SIDE OF BED - STEP 2: Does the patient need only setup/clean-up assistance from one helper? No. LYING TO SITTING ON SIDE OF BED - STEP 3: Does the patient need only verbal/nonverbal cueing or touching/steadying/contact guard assistance fro m one helper? Yes. 1. [id number] ADMISSION PERFORMANCE: Supervision or touching assistance CODE: 04 SIT TO STAND: SIT TO STAND - STEP 1: Does the patient complete the activity by him/herself with no assistance (physical, verbal/nonverbal cueing, setup/clean-up)? No. SIT TO STAND - STEP 2: Does the patient need only setup/clean-up assistance from one helper? No. SIT TO STAND - STEP 3: Does the patient need only verbal/nonverbal cueing or touching/steadying/contact guard assistance fro m one helper? Yes. 1. [id number] ADMISSION PERFORMANCE: Supervision or touching assistance CODE: 04 TRANSFERS: BED, CHAIR: CHAIR/[id number] TRANSFER - STEP 1: Does the patient complete the activity by him/herself with no assistance (physical, verbal/nonverbal cueing, setup/clean-up)? No. CHAIR/[id number] TRANSFER - STEP 2: Does the patient need only setup/clean-up assistance from one helper? No. CHAIR/[id number] TRANSFER - STEP 3: Does the patient need only verbal/nonverbal cueing or touching/steadying/contact guard assistance fro m one helper? Yes. 1. [id number] ADMISSION PERFORMANCE: Supervision or touching assistance CODE: 04 TRANSFER TOILET: TOILET TRANSFER - STEP 1: Does the patient complete the activity by him/herself with no assistance (physical, verbal/nonverbal cueing, setup/clean-up)? No. TOILET TRANSFER - STEP 2: Does the patient need only setup/clean-up assistance from one helper? No. TOILET TRANSFER - STEP 3: Does the patient need only verbal/nonverbal cueing or touching/steadying/contact guard assistance fro m one helper? Yes. 1. [id number] ADMISSION PERFORMANCE: Supervision or touching assistance CODE: 04 TRANSFERS: CAR: Not assessed/no information CODE: - WALK 10 FEET: Not assessed/no information CODE: - 1 STEP (CURB): Not assessed/no information CODE: - PICKING UP OBJECT: Not assessed/no information CODE: - DOES THE PATIENT USE A WHEELCHAIR/SCOOTER? Q1. DOES THE PATIENT USE A WHEELCHAIR/SCOOTER?: Yes CODE: 1 WHEEL 50 FEET WITH TWO TURNS: WHEEL 50 FEET WITH TWO TURNS - STEP 1: Does the patient complete the activity by him/herself with no assistance (physical, verbal/nonverbal cueing, setup/clean-up)? No. WHEEL 50 FEET WITH TWO TURNS - STEP 2: Does the patient need only setup/clean-up assistance from one helper? Yes. 1. [id number] ADMISSION PERFORMANCE: Setup or clean-up assistance CODE: 05 INDICATE THE TYPE OF WHEELCHAIR/SCOOTER USED: RR1. INDICATE THE TYPE OF WHEELCHAIR/SCOOTER USED.: Manual CODE: 1 WHEEL 150 FEET: WHEEL 150 FEET - STEP 1: Does the patient complete the activity by him/herself with no assistance (physical, verbal/nonverbal cueing, setup/clean-up)? No. WHEEL 150 FEET - STEP 2: Does the patient need only setup/clean-up assistance from one helper? No. WHEEL 150 FEET - STEP 3: Does the patient need only verbal/nonverbal cueing or touching/steadying/contact guard assistance fro m one helper? Yes. 1. [id number] ADMISSION PERFORMANCE: Supervision or touching assistance CODE: 04 INDICATE THE TYPE OF WHEELCHAIR/SCOOTER USED: SS1. INDICATE THE TYPE OF WHEELCHAIR/SCOOTER USED.: Manual CODE: 1 BLADDER AND BOWEL: H350. BLADDER CONTINENCE (3-DAY ASSESSMENT PERIOD): Incontinent daily (at least once a day) CODE: 3 H400. BOWEL CONTINENCE (3-DAY ASSESSMENT PERIOD): Always continent CODE: 0 SIGNATURE PANEL: The following modified sections: 1. [id number] Admission Performance, 1. [id number] Admission Performance, 1. [id number] Admission Performance, 1. [id number] Admission Performance, 1. NA3478w Admission Performance, 1. [id number] Admission Performance, 1. EN3367A Admission Performance, 1. [id number] Admission Performance , 1. [id number] Admission Performance, 1. [id number] Admission Performance, 1. AH9638C Admission Performanc e, 1. PE0332D Admission Performance, Q1. Does the patient use a wheelchair/scooter?, 1. [id number] Admis melida Performance, RR1. Indicate the type of wheelchair/scooter used., 1. [id number] Admission Performanc e, Code, SS1. Indicate the type of wheelchair/scooter used., H350. Bladder Continence (3-day assessme nt period), H400. Bowel Continence (3-day assessment period) were [electronically] signed by Servando [email or web address] on ThuJan 31 2020 15:30:57 GMT-0500 (Central Daylight Time)
--- NOTE | 2020-01-31 19:30 | R.PN ---
PROGRESS NOTES ENCOUNTER DATE AND TIME: 01/31/2020 19:27 (CDT) NAME SO JAMES DATE OF : 1940 DATE OF ADMISSION: 01/24/2020 12:00 (CDT) BILATERAL AVULSION TO LOWER EXTREMITIESCHIEF COMPLAINT: Debility and bilateral lower extremity avulsions SUBJECTIVE: Pt denied any depression. Pt denied any Shortness of Breath. WBC 7.8, Hgb 9.7, electrolytes were essentially normal except elevated BUN. Prealbumin was low at 14. 5. UA shows 3+ esterase and elevated WBC of 10-20. Ambulated 1000' with contact guard assistance using a rolling walker. Propelled wheelchair 250' with standby assistance. Speech expression and comprehension is at modified independence. Toilet and tub t ransfer with modified independence. VITAL SIGNS Temperature: 98.1 F SBP/DBP: 139/66 Pulse: 64 Resp: 16 MEDICATION ALLERGIES: No Known Drug Allergies (NKDA) ENVIRONMENTAL ALLERGIES: - Substance Allergies None Known - Other Allergies None Known NURSING: - Shower allowing shower ACTIVITIES OOB only with supervision THERAPIES: - Dietary and Nutrition Adequate Nutrition. Nutritional Education. Nutritional Supplements. PHYSICAL EXAM - Gen Alert and awake Lying in bed No apparent distress Oriented to: person, time, and place - Skin No skin breakdown. Normacephalic - Eyes No abnormalities - ENMT No abnormalities - Neck No abnormalities - CVS RRR - Chest Clear - Resp Clear to auscultation - Abd Soft - GI Non distended Deferred - No abnormalities - Ext Mild bilateral lower extremity edema. - MSK 4+/5 weakness in both lower extremities. - Neuro No focal deficits - Psych No abnormalities ASSESSMENT: Pt. is a 79 yo Right-handed female of unknown race.On 01/21/2020 she was admitted to [facility] with diagnosis BILATERAL AVULSION TO LOWER EXTREMITIES.Her impairment category is Debility 16 - D ebility (16).Pre-morbidly, Pt. was independent/mod-I in Locomotion, Balance, Social Cognition, Transf ers Control, Sphincter Control, Self-Care, Communication, and Endurance; and she had good Endurance, Self-Care, Communication, Safety Awareness, and Transfers Control.Currently, she has deficits of [place], Safety Awareness, Locomotion, Endurance, Sphincter Control, and Transfers Control.Pt. is now ref erred to [facility] for acute in-patient rehabilitation in order to maximize p atient's functional independence in activities of daily living, strength, ROM, and mobility.- Rehab G oal Patient has realistic goal of being discharged at assistance level 6-Fly to reside at Home with Fam lisandro/Relatives. MDM/PLAN: - Physical Therapy Gait dysfunction - to improve, our physical therapists will perform initial evaluation of pt's statu s upon admission and devise an individualized program for Gait Training, and Wheel Chair mobility Inability to transfer - to improve, our physical therapists will perform initial evaluation of pt's status upon admission and devise an individualized program for Bed mobility Need for home safety evaluation - to improve, our physical therapists will perform initial evaluatio n of pt's status upon admission and devise an individualized program for Home Evaluation Need in caregiver upon discharge - to improve, our physical therapists will perform initial evaluati on of pt's status upon admission and devise an individualized program for Caregiver Training New precaution - to improve, our physical therapists will perform initial evaluation of pt's status upon admission and devise an individualized program for Patient precaution education Edema - to improve, our physical therapists will perform initial evaluation of pt's status upon admi ssion and devise an individualized program for Elevation Training, and Lymphedema Therapy Poor balance - to improve, our physical therapists will perform initial evaluation of pt's status up on admission and devise an individualized program for Balance Training Poor endurance - to improve, our physical therapists will perform initial evaluation of pt's status upon admission and devise an individualized program for Endurance Training Weakness - to improve, our physical therapists will perform initial evaluation of pt's status upon a dmission and devise an individualized program for Aquatic Therapy, Neuromuscular Reeducation, and Str engthening Achieving independence - to improve, our physical therapists will perform initial evaluation of pt's status upon admission and devise an individualized program for Community Reintegration Activities - Occupational Therapy Need for care management specialist - to improve, our occupation therapists will perform initial evaluation of pt's status upon admission and devise an individualized program for Caregiver Training Weakness - to improve, our occupation therapists will perform initial evaluation of pt's status upon admission and devise an individualized program for Aquatic Therapy, Balance, Endurance, UE ROM, and UE strengthening - Other See attached MAR (Medication Administration Record) - Diet Type Continue Regular - Diet - Liquid Texture Continue Regular - Tube Feed Continue N/A - Diet - Solid Texture Continue Regular - Shower allowing shower FUNCTIONAL STATUS: UPDATED AT WEEKLY TEAM CONFERENCE - Bladder Same accident frequency: 7-Ind - No accidents in the past 7 days - Bowel Same accident frequency: 7-Ind - No accidents in the past 7 days - Walking Same score based on distance walked: 0(N/A) - Wheelchair Same score based on distance traveled: 0(N/A) FUNCTIONAL STATUS: - Self-Care A. Eating Fly B. Grooming Fly C. Bathing sup D. Dressing - Upper sup E. Dressing - Lower sup F. Toileting sup - Sphincter Control G. Bladder control Fly H. Bowel control Fly - Transfers Control I. Bed/Chair/Wheelchair Fly J. Toilet Fly K. Tub/Shower sup - Locomotion L. Walk/Wheelchair (B) Fly M. Stairs Fly - Communication N. Comprehension (B) Fly O. Expression (B) Fly - Social Cognition P. Social Interaction Fly Q. Problem Solving Fly R. Memory Fly - Endurance Good - Balance Good - Safety Awareness Good QI SCORES: - Self-Care A. Eating 03-Partial/moderate assistance B. Oral hygiene 03-Partial/moderate assistance C. Toileting hygiene 88-Not attempted due to medical condition or safety concerns E. Shower/bathe self 03-Partial/moderate assistance F. Upper body dressing 88-Not attempted due to medical condition or safety concerns G. Lower body dressing 88-Not attempted due to medical condition or safety concerns H. Putting on/taking off footwear 88-Not attempted due to medical condition or safety concerns - Mobility A. Roll left and right 03-Partial/moderate assistance B. Sit to lying 03-Partial/moderate assistance C. Lying to sitting on side of bed 03-Partial/moderate assistance D. Sit to stand 03-Partial/moderate assistance E. Chair/xxn-aj-eqxsk transfer 03-Partial/moderate assistance F. Toilet transfer 03-Partial/moderate assistance G. Car transfer 88-Not attempted due to medical condition or safety concerns I. Walk 10 feet 88-Not attempted due to medical condition or safety concerns J. Walk 50 feet with two turns 88-Not attempted due to medical condition or safety concerns K. Walk 150 feet 88-Not attempted due to medical condition or safety concerns L. Walking 10 feet on uneven surfaces 88-Not attempted due to medical condition or safety concerns M. 1 step (curb) 88-Not attempted due to medical condition or safety concerns N. 4 steps 88-Not attempted due to medical condition or safety concerns O. 12 steps 88-Not attempted due to medical condition or safety concerns P. Picking up object 03-Partial/moderate assistance R. Wheel 50 feet with two turns 88-Not attempted due to medical condition or safety concerns S. Wheel 150 feet 88-Not attempted due to medical condition or safety concerns - Bladder and Bowel Bladder continence 3-Incontinent daily Bowel continence 0-Always continent - Endurance Fair - Balance Fair - Safety Awareness Fair [facility] DEFICITS: Self-Care, Mobility, Endurance, Balance, and Safety Awareness SIGNATURE PANEL: (CDT)
[2020-01-31] MEDS: LOSARTAN PO SCH (20:00)
[2020-01-31] MEDS: HCTZ PO SCH (20:00)
[2020-02-01] MEDS: SOTALOL HCL 80 MG TAB PO SCH ×2 (05:01→17:02)
[2020-02-01] MEDS: CRANBERRY FRUIT EXTRACT 200 MG CAP PO SCH ×2 (07:25→19:37)
[2020-02-01] MEDS: FE SULF/FA/VIT B COMP & C TAB PO SCH (07:25)
[2020-02-01] MEDS: ASPIRIN 81 MG CHEWABLE TABLET PO SCH (07:26)
[2020-02-01] MEDS: FOLIC ACID 400 MCG PO SCH (07:26)
[2020-02-01] MEDS: ASCORBIC ACID 500 MG TABLET PO SCH (07:26)
[2020-02-01] MEDS: [UNRECOGNIZED DRUG - OTHER] IH SCH (07:26)
[2020-02-01] MEDS: PANTOPRAZOLE 40MG TABLET PO SCH (07:26)
[2020-02-01] MEDS: DOCUSATE NA 100 MG CAP PO SCH ×2 (07:26→19:38)
[2020-02-01] MEDS: COLLAGENASE 30 GM OINTMENT TOP SCH (07:26)
[2020-02-01] MEDS: LIDOCAINE 4% PATCH TOP SCH (07:26)
[2020-02-01] MEDS: [UNRECOGNIZED DRUG - OTHER] PO SCH (07:27)
[2020-02-01] MEDS: HCTZ PO SCH (07:27)
[2020-02-01] MEDS: LOSARTAN PO SCH (07:27)
[2020-02-01] MEDS: PROMOD 30 ML DOSE PO SCH ×2 (07:28→19:38)
[2020-02-01] MEDS: ACETAMINOPHEN 325 MG TABLET PO PRN ×2 (08:34→20:06)
--- NOTE | 2020-02-01 15:05 | FAST ---
OT QI REPORT FORM ENCOUNTER DATE AND TIME: 02/01/2020 08:00 (CDT) NAME SO JAMES DATE OF : 1940 DATE OF ADMISSION: 01/24/2020 12:00 (CDT) PHONE: AGE: 79 N# [id number] GENDER: Female ENCOUNTER PHYSICIAN: Dr. Nathan Grove M.D. ADMISSION DIAGNOSIS: - Debility 16 - Debility (16) BILATERAL AVULSION TO LOWER EXTREMITIES. EATING: Not assessed/no information CODE: - ORAL HYGIENE: ORAL HYGIENE - STEP 1: Does the patient complete the activity by him/herself with no assistance (physical, verbal/nonverbal cueing, setup/clean-up)? Yes. 1. [id number] ADMISSION PERFORMANCE: Independent CODE: 06 TOILETING HYGIENE: Not assessed/no information CODE: - BATHING: SHOWER/BATHE SELF - STEP 1: Does the patient complete the activity by him/herself with no assistance (physical, verbal/nonverbal cueing, setup/clean-up)? No. SHOWER/BATHE SELF - STEP 2: Does the patient need only setup/clean-up assistance from one helper? No. SHOWER/BATHE SELF - STEP 3: Does the patient need only verbal/nonverbal cueing or touching/steadying/contact guard assistance fro m one helper? Yes. 1. [id number] ADMISSION PERFORMANCE: Supervision or touching assistance CODE: 04 DRESSING - UPPER BODY: DRESSING - UPPER BODY - STEP 1: Does the patient complete the activity by him/herself with no assistance (physical, verbal/nonverbal cueing, setup/clean-up)? Yes. 1. [id number] ADMISSION PERFORMANCE: Independent CODE: 06 DRESSING - LOWER BODY: DRESSING - LOWER BODY - STEP 1: Does the patient complete the activity by him/herself with no assistance (physical, verbal/nonverbal cueing, setup/clean-up)? No. DRESSING - LOWER BODY - STEP 2: Does the patient need only setup/clean-up assistance from one helper? No. DRESSING - LOWER BODY - STEP 3: Does the patient need only verbal/nonverbal cueing or touching/steadying/contact guard assistance fro m one helper? Yes. 1. [id number] ADMISSION PERFORMANCE: Supervision or touching assistance CODE: 04 PUTTING ON/TAKING OFF FOOTWEAR: FOOTWEAR - STEP 1: Does the patient complete the activity by him/herself with no assistance (physical, verbal/nonverbal cueing, setup/clean-up)? Yes. 1. [id number] ADMISSION PERFORMANCE: Independent CODE: 06 DOES THE PATIENT USE A WHEELCHAIR/SCOOTER? CODE: EXPR INDICATE THE TYPE OF WHEELCHAIR/SCOOTER USED: CODE: EXPR INDICATE THE TYPE OF WHEELCHAIR/SCOOTER USED: CODE: EXPR BLADDER AND BOWEL: CODE: EXPR CODE: EXPR SIGNATURE PANEL: The following modified sections: 1. [id number] Admission Performance, 1. HB3339u Admission Performance, 1. GH2823t Admission Performance, 1. SG4524w Admission Performance, 1. [id number] Admission Performance were [electronically] signed by CHRISTIAN Harrington on ThuFeb 01 2020 15:04:12 GMT-0500 (Central Daylight Time)
--- NOTE | 2020-02-01 17:52 | R.PN ---
PROGRESS NOTES ENCOUNTER DATE AND TIME: 02/01/2020 17:48 (CDT) NAME SO JAMES DATE OF : 1940 DATE OF ADMISSION: 01/24/2020 12:00 (CDT) BILATERAL AVULSION TO LOWER EXTREMITIESCHIEF COMPLAINT: Debility and bilateral lower extremity avulsions SUBJECTIVE: Pt denied any depression. Pt denied any Shortness of Breath. WBC 7.8, Hgb 9.7, electrolytes were essentially normal except elevated BUN. Prealbumin was low at 14. 5. UA shows 3+ esterase and elevated WBC of 10-20. Ambulated 1250' with independence using a rolling walker. Propelled wheelchair 250' with independence . She walker up and down 15 steps with standby assistance Speech expression and comprehension is at modified independence. Toilet and tub transfer with modified independence. VITAL SIGNS Temperature: 97.2 F SBP/DBP: 142/75 Pulse: 65 Resp: 16 MEDICATION ALLERGIES: No Known Drug Allergies (NKDA) ENVIRONMENTAL ALLERGIES: - Substance Allergies None Known - Other Allergies None Known NURSING: - Shower allowing shower ACTIVITIES OOB only with supervision THERAPIES: - Dietary and Nutrition Adequate Nutrition. Nutritional Education. Nutritional Supplements. PHYSICAL EXAM - Gen Alert and awake Lying in bed No apparent distress Oriented to: person, time, and place - Skin No skin breakdown. Normacephalic - Eyes No abnormalities - ENMT No abnormalities - Neck No abnormalities - CVS RRR - Chest Clear - Resp Clear to auscultation - Abd Soft - GI Non distended Deferred - No abnormalities - Ext Mild bilateral lower extremity edema. - MSK 4+/5 weakness in both lower extremities. - Neuro No focal deficits - Psych No abnormalities ASSESSMENT: Pt. is a 79 yo Right-handed female of unknown race.On 01/21/2020 she was admitted to [facility] with diagnosis BILATERAL AVULSION TO LOWER EXTREMITIES.Her impairment category is Debility 16 - D ebility (16).Pre-morbidly, Pt. was independent/mod-I in Locomotion, Balance, Social Cognition, Transf ers Control, Sphincter Control, Self-Care, Communication, and Endurance; and she had good Endurance, Self-Care, Communication, Safety Awareness, and Transfers Control.Currently, she has deficits of [place] nce, Safety Awareness, Locomotion, Endurance, Sphincter Control, and Transfers Control.Pt. is now ref erred to [facility] for acute in-patient rehabilitation in order to maximize p atient's functional independence in activities of daily living, strength, ROM, and mobility.- Rehab G oal Patient has realistic goal of being discharged at assistance level 6-Fly to reside at Home with Fam lisandro/Relatives. MDM/PLAN: - Physical Therapy Gait dysfunction - to improve, our physical therapists will perform initial evaluation of pt's statu s upon admission and devise an individualized program for Gait Training, and Wheel Chair mobility Inability to transfer - to improve, our physical therapists will perform initial evaluation of pt's status upon admission and devise an individualized program for Bed mobility Need for home safety evaluation - to improve, our physical therapists will perform initial evaluatio n of pt's status upon admission and devise an individualized program for Home Evaluation Need in caregiver upon discharge - to improve, our physical therapists will perform initial evaluati on of pt's status upon admission and devise an individualized program for Caregiver Training New precaution - to improve, our physical therapists will perform initial evaluation of pt's status upon admission and devise an individualized program for Patient precaution education Edema - to improve, our physical therapists will perform initial evaluation of pt's status upon admi ssion and devise an individualized program for Elevation Training, and Lymphedema Therapy Poor balance - to improve, our physical therapists will perform initial evaluation of pt's status up on admission and devise an individualized program for Balance Training Poor endurance - to improve, our physical therapists will perform initial evaluation of pt's status upon admission and devise an individualized program for Endurance Training Weakness - to improve, our physical therapists will perform initial evaluation of pt's status upon a dmission and devise an individualized program for Aquatic Therapy, Neuromuscular Reeducation, and Str engthening Achieving independence - to improve, our physical therapists will perform initial evaluation of pt's status upon admission and devise an individualized program for Community Reintegration Activities - Occupational Therapy Need for customer care assistant - to improve, our occupation therapists will perform initial evaluation of pt's status upon admission and devise an individualized program for Caregiver Training Weakness - to improve, our occupation therapists will perform initial evaluation of pt's status upon admission and devise an individualized program for Aquatic Therapy, Balance, Endurance, UE ROM, and UE strengthening - Other See attached MAR (Medication Administration Record) - Diet Type Continue Regular - Diet - Liquid Texture Continue Regular - Tube Feed Continue N/A - Diet - Solid Texture Continue Regular - Shower allowing shower FUNCTIONAL STATUS: UPDATED AT WEEKLY TEAM CONFERENCE - Bladder Same accident frequency: 7-Ind - No accidents in the past 7 days - Bowel Same accident frequency: 7-Ind - No accidents in the past 7 days - Walking Same score based on distance walked: 0(N/A) - Wheelchair Same score based on distance traveled: 0(N/A) FUNCTIONAL STATUS: - Self-Care A. Eating Fly B. Grooming Fly C. Bathing sup D. Dressing - Upper sup E. Dressing - Lower sup F. Toileting sup - Sphincter Control G. Bladder control lFy H. Bowel control Fly - Transfers Control I. Bed/Chair/Wheelchair Fly J. Toilet Fly K. Tub/Shower sup - Locomotion L. Walk/Wheelchair (B) Fly M. Stairs Fly - Communication N. Comprehension (B) Fly O. Expression (B) Fly - Social Cognition P. Social Interaction Fly Q. Problem Solving Fly R. Memory Fly - Endurance Good - Balance Good - Safety Awareness Good QI SCORES: - Self-Care A. Eating 03-Partial/moderate assistance B. Oral hygiene 03-Partial/moderate assistance C. Toileting hygiene 88-Not attempted due to medical condition or safety concerns E. Shower/bathe self 03-Partial/moderate assistance F. Upper body dressing 88-Not attempted due to medical condition or safety concerns G. Lower body dressing 88-Not attempted due to medical condition or safety concerns H. Putting on/taking off footwear 88-Not attempted due to medical condition or safety concerns - Mobility A. Roll left and right 03-Partial/moderate assistance B. Sit to lying 03-Partial/moderate assistance C. Lying to sitting on side of bed 03-Partial/moderate assistance D. Sit to stand 03-Partial/moderate assistance E. Chair/epi-cq-kevyz transfer 03-Partial/moderate assistance F. Toilet transfer 03-Partial/moderate assistance G. Car transfer 88-Not attempted due to medical condition or safety concerns I. Walk 10 feet 88-Not attempted due to medical condition or safety concerns J. Walk 50 feet with two turns 88-Not attempted due to medical condition or safety concerns K. Walk 150 feet 88-Not attempted due to medical condition or safety concerns L. Walking 10 feet on uneven surfaces 88-Not attempted due to medical condition or safety concerns M. 1 step (curb) 88-Not attempted due to medical condition or safety concerns N. 4 steps 88-Not attempted due to medical condition or safety concerns O. 12 steps 88-Not attempted due to medical condition or safety concerns P. Picking up object 03-Partial/moderate assistance R. Wheel 50 feet with two turns 88-Not attempted due to medical condition or safety concerns S. Wheel 150 feet 88-Not attempted due to medical condition or safety concerns - Bladder and Bowel Bladder continence 3-Incontinent daily Bowel continence 0-Always continent - Endurance Fair - Balance Fair - Safety Awareness Fair CURRENT [facility]. DEFICITS: Self-Care, Mobility, Endurance, Balance, and Safety Awareness SIGNATURE PANEL: (CDT)
[2020-02-01] MEDS: ENSURE ENLIVE 237 ML CAN PO SCH (19:38)
[2020-02-01] MEDS: ZOLPIDEM TARTRATE 5 MG TABLET PO PRN (20:04)
[2020-02-02] MEDS: SOTALOL HCL 80 MG TAB PO SCH ×2 (05:06→17:03)
[2020-02-02 06:17] LABS: Absolute Lymphocytes (CBC) 1.8 K/uL (0.7-4.9); Basophils % 0.8 % (0-1.3); Hematocrit 27.7 % (36.0-45.0); Lymphocytes % 24.4 % (15.3-44.8); MPV 7.8 fL (7.6-11.3); RBC Red Blood Cell Count 2.92 M/uL (3.86-4.86)
[2020-02-02 06:39] LABS: Albumin 2.9 g/dL (3.4-5.0); Magnesium 2.7 mg/dL (1.8-2.4); Potassium 4.8 mmol/L (3.5-5.1); Prealbumin 14.1 mg/dL (20-40)
[2020-02-02] MEDS: [UNRECOGNIZED DRUG - OTHER] IH SCH (06:44)
[2020-02-02] MEDS: ACETAMINOPHEN 325 MG TABLET PO PRN ×3 (06:55→19:06)
[2020-02-02] MEDS: LOSARTAN PO SCH (06:56)
[2020-02-02] MEDS: HCTZ PO SCH (06:56)
[2020-02-02] MEDS: PANTOPRAZOLE 40MG TABLET PO SCH ×2 (07:30→11:34)
[2020-02-02] MEDS: CRANBERRY FRUIT EXTRACT 200 MG CAP PO SCH ×3 (08:00→19:06)
[2020-02-02] MEDS: ROFLUMILAST 500 MCG TABLET PO SCH ×2 (08:00→11:37)
[2020-02-02] MEDS: LIDOCAINE 4% PATCH TOP SCH (08:00)
[2020-02-02] MEDS: FOLIC ACID 400 MCG PO SCH ×2 (08:00→11:33)
[2020-02-02] MEDS: ASCORBIC ACID 500 MG TABLET PO SCH ×2 (08:00→11:34)
[2020-02-02] MEDS: [UNRECOGNIZED DRUG - OTHER] PO SCH (08:00)
[2020-02-02] MEDS: PROMOD 30 ML DOSE PO SCH ×3 (08:00→19:06)
[2020-02-02] MEDS: DOCUSATE NA 100 MG CAP PO SCH ×3 (08:00→19:06)
[2020-02-02] MEDS: ENSURE ENLIVE 237 ML CAN PO SCH ×3 (08:00→19:06)
[2020-02-02] MEDS: ASPIRIN 81 MG CHEWABLE TABLET PO SCH ×2 (08:00→11:34)
[2020-02-02] MEDS: COLLAGENASE 30 GM OINTMENT TOP SCH (08:00)
[2020-02-02] MEDS: FE SULF/FA/VIT B COMP & C TAB PO SCH ×2 (08:00→11:34)
[2020-02-02] MEDS ORDERED: NA CHLORIDE 0.9% 1,000 ML ONE (09:02)
[2020-02-02] MEDS ORDERED: COLLAGENASE 30 GM OINTMENT TOP ONE (09:11)
[2020-02-02] MEDS ORDERED: CEFAZOLIN/SWI 1gm 1 GM/10 ML SYR ONE (09:14)
[2020-02-02] MEDS ORDERED: propofoL 200 MG/20 ML VIAL IV ONE (09:19)
[2020-02-02] MEDS ORDERED: FENTANYL CITR 100 MCG/2 ML ONE (09:19)
[2020-02-02] MEDS ORDERED: LIDOCAINE 2% MPF 5 ML VIAL ONE (09:20)
--- NOTE | 2020-02-02 09:43 | PREOPCON ---
Date of Consultation: 02/01/2020 Reason: Nonhealing wound, both legs and left hand. History Of Present Illness: The patient is a 79-year-old female, who fell at the beginning of the [facility] and went to [facility] where she was transferred to our facility for rehab and upon evalua tion was noted to have nonhealing wounds on both legs and left hand. Wound Care evaluated the wounds and documented with pictures, size and description. Essentially it is not infected however is nonhe aling and needs surgical debridement. There was no sore throat, runny nose, cough, headaches, or diz ziness. No chest pain. No fever or chills. Review of Systems: Otherwise unremarkable. Past Medical History: Coronary artery disease, hypertension, COPD, GERD, arthritis. Past Surgical History: Pacemaker, appendectomy, hysterectomy, tonsillectomy, bilateral foot surgery, stents in both lower extremities, cataract surgery. Allergies: NO ALLERGIES. Social History: The patient currently does not smoke or drink alcohol. Physical Examination: Vital Signs: Her vitals are stable. She is afebrile. General: She is awake, alert, and oriented x3. Head and Neck: Cranial 2 through 12 grossly within normal limits. No neck masses. No JVD. Throat clear. Neck: Supple. Chest: Clear. Heart: S1, S2. Abdomen: Soft. Extremities: Neurovascularly intact. Neuro: Nonfocal. Skin: Bilateral knees have wounds below the knee. Right anterior leg, there is a full-thickness com plicated open wound. The wound measures 11.5 x 12 x 0.2 cm and bridge 20%. There is a large hematom a at the base of the wound under skin flap. There is serosanguineous drainage. The wound edge is ir regular and attached. Wound has edema and ecchymosis but no surrounding erythema or warmth. Left an terior leg just below the knee, there is a full-thickness complicated open wound. Wound measures 6 x 4.2 x 0.2 cm, moderate drainage present. Wound edge is irregular, attached. There is edema and ecc hymoses. There is some fibrin present as well and then there is a left palmar hand skin tear, partia l thickness wound, which is healing. This needs a little bit of debridement on the epidermis. Assessment: Multiple nonhealing wounds, both legs and left hand. Plan: We will take the patient to the OR for debridement of all 3 wounds. The patient understands t he risks, benefits, and alternatives and agrees to procedure. DARLIN/BERNRADO Voice ID: [id number] Report ID: [id number]
[2020-02-02] MEDS ORDERED: NS 0.9% VIAL 20 ML ONE (09:44)
[2020-02-02] MEDS ORDERED: EPHEDRINE SULF 50 MG/ML VIAL ONE (09:44)
[2020-02-02] MEDS ORDERED: ONDANSETRON 4 MG/2 ML VIAL ONE (09:48)
--- NOTE | 2020-02-02 10:06 | P.OP ---
Silk Screen Layout Drafter: NONE,NONE Preoperative diagnosis: Non-healing wound Left hand and both knees Postoperative diagnosis: same Primary procedure: Debridement left hand wound 3x4 cm partial thickness Secondary procedure: Debridement right anterior leg wound 11.5 x 12 cm to sq Other procedure(s): Debridement left anterior leg wound 6 x 4.2 cm to sq Anesthesia: gen Estimated blood loss: min Specimen: necrotic tissue Findings: as above Complications: None Transferred to: Recovery Room Condition: Good
[2020-02-02] MEDS ORDERED: SILVER SULFADIAZINE 1% 25 GM TOP ONE (10:07)
[2020-02-02 10:44] VITALS: O2SAT 100
[2020-02-02] MEDS: TRAMADOL HCL 50 MG TAB PO PRN (14:51)
[2020-02-02] MEDS: ONDANSETRON 4 MG (ODT) TAB PO PRN (14:54)
--- NOTE | 2020-02-02 16:59 | R.PN ---
PROGRESS NOTES ENCOUNTER DATE AND TIME: 02/02/2020 16:50 (CDT) NAME SO JAMES DATE OF : 1940 DATE OF ADMISSION: 01/24/2020 12:00 (CDT) BILATERAL AVULSION TO LOWER EXTREMITIESCHIEF COMPLAINT: Debility and bilateral lower extremity avulsions SUBJECTIVE: Pt denied any depression. Pt denied any Shortness of Breath. WBC 7.4, Hgb 9.2, electrolytes were essentially normal except elevated BUN. Prealbumin was low at 14. 1. UA shows 3+ esterase and elevated WBC of 10-20. She is back today after having surgical debridement of her thigh wounds. She is followed by the wound care service. VITAL SIGNS Temperature: 97.6 F SBP/DBP: 154/67 Pulse: 63 Resp: 15 MEDICATION ALLERGIES: No Known Drug Allergies (NKDA) ENVIRONMENTAL ALLERGIES: - Substance Allergies None Known - Other Allergies None Known NURSING: - Shower allowing shower ACTIVITIES OOB only with supervision THERAPIES: - Dietary and Nutrition Adequate Nutrition. Nutritional Education. Nutritional Supplements. PHYSICAL EXAM - Gen Alert and awake Lying in bed No apparent distress Oriented to: person, time, and place - Skin No skin breakdown. Normacephalic - Eyes No abnormalities - ENMT No abnormalities - Neck No abnormalities - CVS RRR - Chest Clear - Resp Clear to auscultation - Abd Soft - GI Non distended Deferred - No abnormalities - Ext Mild bilateral lower extremity edema. - MSK 4+/5 weakness in both lower extremities. - Neuro No focal deficits - Psych No abnormalities ASSESSMENT: Pt. is a 79 yo Right-handed female of unknown race.On 01/21/2020 she was admitted to [facility] with diagnosis BILATERAL AVULSION TO LOWER EXTREMITIES.Her impairment category is Debility 16 - D ebility (16).Pre-morbidly, Pt. was independent/mod-I in Locomotion, Balance, Social Cognition, Transf ers Control, Sphincter Control, Self-Care, Communication, and Endurance; and she had good Endurance, Self-Care, Communication, Safety Awareness, and Transfers Control.Currently, she has deficits of [place], Safety Awareness, Locomotion, Endurance, Sphincter Control, and Transfers Control.Pt. is now ref erred to [facility] for acute in-patient rehabilitation in order to maximize p atient's functional independence in activities of daily living, strength, ROM, and mobility.- Rehab G oal Patient has realistic goal of being discharged at assistance level 6-Fly to reside at Home with Fam lisandro/Relatives. MDM/PLAN: - Physical Therapy Gait dysfunction - to improve, our physical therapists will perform initial evaluation of pt's statu s upon admission and devise an individualized program for Gait Training, and Wheel Chair mobility Inability to transfer - to improve, our physical therapists will perform initial evaluation of pt's status upon admission and devise an individualized program for Bed mobility Need for home safety evaluation - to improve, our physical therapists will perform initial evaluatio n of pt's status upon admission and devise an individualized program for Home Evaluation Need in caregiver upon discharge - to improve, our physical therapists will perform initial evaluati on of pt's status upon admission and devise an individualized program for Caregiver Training New precaution - to improve, our physical therapists will perform initial evaluation of pt's status upon admission and devise an individualized program for Patient precaution education Edema - to improve, our physical therapists will perform initial evaluation of pt's status upon admi ssion and devise an individualized program for Elevation Training, and Lymphedema Therapy Poor balance - to improve, our physical therapists will perform initial evaluation of pt's status up on admission and devise an individualized program for Balance Training Poor endurance - to improve, our physical therapists will perform initial evaluation of pt's status upon admission and devise an individualized program for Endurance Training Weakness - to improve, our physical therapists will perform initial evaluation of pt's status upon a dmission and devise an individualized program for Aquatic Therapy, Neuromuscular Reeducation, and Str engthening Achieving independence - to improve, our physical therapists will perform initial evaluation of pt's status upon admission and devise an individualized program for Community Reintegration Activities - Occupational Therapy Need for acute care nursing assistant - to improve, our occupation therapists will perform initial evaluation of pt's status upon admission and devise an individualized program for Caregiver Training Weakness - to improve, our occupation therapists will perform initial evaluation of pt's status upon admission and devise an individualized program for Aquatic Therapy, Balance, Endurance, UE ROM, and UE strengthening - Other See attached MAR (Medication Administration Record) - Diet Type Continue Regular - Diet - Liquid Texture Continue Regular - Tube Feed Continue N/A - Diet - Solid Texture Continue Regular - Shower allowing shower FUNCTIONAL STATUS: UPDATED AT WEEKLY TEAM CONFERENCE - Bladder Same accident frequency: 7-Ind - No accidents in the past 7 days - Bowel Same accident frequency: 7-Ind - No accidents in the past 7 days - Walking Same score based on distance walked: 0(N/A) - Wheelchair Same score based on distance traveled: 0(N/A) FUNCTIONAL STATUS: - Self-Care A. Eating Fly B. Grooming Fly C. Bathing sup D. Dressing - Upper sup E. Dressing - Lower sup F. Toileting sup - Sphincter Control G. Bladder control Fly H. Bowel control Fly - Transfers Control I. Bed/Chair/Wheelchair Fly J. Toilet Fly K. Tub/Shower sup - Locomotion L. Walk/Wheelchair (B) Fly M. Stairs Fly - Communication N. Comprehension (B) Fly O. Expression (B) Fly - Social Cognition P. Social Interaction Fly Q. Problem Solving Fly R. Memory Fly - Endurance Good - Balance Good - Safety Awareness Good QI SCORES: - Self-Care A. Eating 03-Partial/moderate assistance B. Oral hygiene 03-Partial/moderate assistance C. Toileting hygiene 88-Not attempted due to medical condition or safety concerns E. Shower/bathe self 03-Partial/moderate assistance F. Upper body dressing 88-Not attempted due to medical condition or safety concerns G. Lower body dressing 88-Not attempted due to medical condition or safety concerns H. Putting on/taking off footwear 88-Not attempted due to medical condition or safety concerns - Mobility A. Roll left and right 03-Partial/moderate assistance B. Sit to lying 03-Partial/moderate assistance C. Lying to sitting on side of bed 03-Partial/moderate assistance D. Sit to stand 03-Partial/moderate assistance E. Chair/ewm-dj-zqlff transfer 03-Partial/moderate assistance F. Toilet transfer 03-Partial/moderate assistance G. Car transfer 88-Not attempted due to medical condition or safety concerns I. Walk 10 feet 88-Not attempted due to medical condition or safety concerns J. Walk 50 feet with two turns 88-Not attempted due to medical condition or safety concerns K. Walk 150 feet 88-Not attempted due to medical condition or safety concerns L. Walking 10 feet on uneven surfaces 88-Not attempted due to medical condition or safety concerns M. 1 step (curb) 88-Not attempted due to medical condition or safety concerns N. 4 steps 88-Not attempted due to medical condition or safety concerns O. 12 steps 88-Not attempted due to medical condition or safety concerns P. Picking up object 03-Partial/moderate assistance R. Wheel 50 feet with two turns 88-Not attempted due to medical condition or safety concerns S. Wheel 150 feet 88-Not attempted due to medical condition or safety concerns - Bladder and Bowel Bladder continence 3-Incontinent daily Bowel continence 0-Always continent - Endurance Fair - Balance Fair - Safety Awareness Fair CURRENT [facility]. DEFICITS: Self-Care, Mobility, Endurance, Balance, and Safety Awareness SIGNATURE PANEL: (CDT)
[2020-02-02] MEDS: ZOLPIDEM TARTRATE 5 MG TABLET PO PRN (19:06)
--- NOTE | 2020-02-02 20:10 | OP ---
Date of Procedure: 02/02/2020 Surgeon: Seymour Everett MD Director Summer Sessions: None. Preoperative Diagnoses: Nonhealing wound, left hand and both anterior legs. Postoperative Diagnoses: Nonhealing wound, left hand and both anterior legs. Procedures: 1.Debridement of left hand wound, partial thickness, total area of 3 x 4 cm. 2.Debridement of right anterior leg wound, 11.5 x 12 cm and some of it was hematoma. 3.Debridement of left anterior leg, 6 x 4.2 cm to subcutaneous tissue. Specimen: Necrotic tissue. Findings: As above. Anesthesia: General. Complications: None. Disposition: The patient tolerated the procedure in stable condition, taken to Recovery in good gene ral condition. Procedure In Detail: The patient was brought to the OR and placed in supine position. General anest hesia was begun. The patient was prepped and draped in usual sterile fashion. Marcaine 0.5% was inf iltrated locally. Then, examination of the hand wound revealed partial-thickness skin tear of the ep idermis, which needed debridement in 3 [address]. Total area that was debrided was approximat serafin 3 x 4 cm and then a sterile dressing was applied. On the right knee, there was a hematoma, which was unroofed and evacuated and then wound was brushed with a surgical brush and then curette was use d to debride the fibrin. The patient had quite a bit of granulation tissue and some of it was hypert rophic. There was no surrounding erythema. There was edema present. There was no warmth. The enti re area approximately 11.5 x 12 cm was debrided down to the subcutaneous tissue and good granulation tissue was present. Bleeding was controlled with cautery, and on the left anterior leg, 6 x 4.2 cm a lisa was debrided with a scrub brush and curette and again there was hypertrophic granulation tissue p resent. There were some folded in skin edges that were debrided to allow for better closure of the w ound. At some point, the patient may need skin graft synthetic. At this time, after wound was irrig ated, bleeding was controlled with cautery. Then, Silvadene dressing was applied on both legs. The patient tolerated the procedure in stable condition and then taken to Recovery in good general condit ion. /MODL Voice ID: [id number] Report ID: [id number]
[2020-02-03] MEDS: SOTALOL HCL 80 MG TAB PO SCH ×2 (05:09→17:25)
[2020-02-03] MEDS: [UNRECOGNIZED DRUG - OTHER] IH SCH (07:45)
[2020-02-03] MEDS: COLLAGENASE 30 GM OINTMENT TOP SCH (07:45)
[2020-02-03] MEDS: CRANBERRY FRUIT EXTRACT 200 MG CAP PO SCH ×2 (07:45→20:24)
[2020-02-03] MEDS: DOCUSATE NA 100 MG CAP PO SCH ×2 (07:45→20:24)
[2020-02-03] MEDS: ASPIRIN 81 MG CHEWABLE TABLET PO SCH (07:46)
[2020-02-03] MEDS: PANTOPRAZOLE 40MG TABLET PO SCH (07:46)
[2020-02-03] MEDS: FE SULF/FA/VIT B COMP & C TAB PO SCH (07:46)
[2020-02-03] MEDS: ASCORBIC ACID 500 MG TABLET PO SCH (07:46)
[2020-02-03] MEDS: ACETAMINOPHEN 325 MG TABLET PO PRN ×3 (07:46→20:27)
[2020-02-03] MEDS: FOLIC ACID 400 MCG PO SCH (07:52)
[2020-02-03] MEDS: HCTZ PO SCH (07:53)
[2020-02-03] MEDS: LOSARTAN PO SCH (07:53)
[2020-02-03] MEDS: [UNRECOGNIZED DRUG - OTHER] PO SCH (07:54)
[2020-02-03] MEDS: ENSURE ENLIVE 237 ML CAN PO SCH ×2 (08:00→20:25)
[2020-02-03] MEDS: PROMOD 30 ML DOSE PO SCH ×2 (08:00→20:25)
[2020-02-03] MEDS: ONDANSETRON 4 MG (ODT) TAB PO PRN (08:59)
--- NOTE | 2020-02-03 09:59 | P.RH.PN ---
Estimated Length of Stay: 15 Expected Discharge Date: 02/07/20 Discharge Disposition Plan: Home Family Support: Yes Skilled Nursing Goal: Mobility, Transfers, Self Care Vital Signs: Last Vital Signs Temp 97.7 F 02/03/20 07:43 Pulse 64 02/03/20 07:43 Resp 16 02/03/20 07:43 BP 155/62 H 02/03/20 07:43 Pulse Ox 95 02/03/20 07:43 Laboratory: Laboratory Last Values WBC 7.4 K/uL (4.3-10.9) 02/02/20 05:46 RBC 2.92 M/uL (3.86-4.86) L 02/02/20 05:46 Hgb 9.2 g/dL (12.0-15.0) L 02/02/20 05:46 Hct 27.7 % (36.0-45.0) L 02/02/20 05:46 MCV 94.8 fL (80-100) 02/02/20 05:46 MCH 31.5 pg (27.0-35.0) 02/02/20 05:46 MCHC 33.2 g/dL (32.0-36.0) 02/02/20 05:46 RDW 13.3 % (12.1-15.2) 02/02/20 05:46 Plt Count 335 K/uL (152-406) 02/02/20 05:46 MPV 7.8 fL (7.6-11.3) 02/02/20 05:46 Neutrophils % 57.7 % (41.7-73.7) 02/02/20 05:46 Lymphocytes % 24.4 % (15.3-44.8) 02/02/20 05:46 Monocytes % 14.8 % (3.3-12.3) H 02/02/20 05:46 Eosinophils % 2.3 % (0-4.4) 02/02/20 05:46 Basophils % 0.8 % (0-1.3) 02/02/20 05:46 Absolute Neutrophils 4.3 K/uL (1.8-8.0) 02/02/20 05:46 Absolute Lymphocytes 1.8 K/uL (0.7-4.9) 02/02/20 05:46 Absolute Monocytes 1.1 K/uL (0.1-1.3) 02/02/20 05:46 Absolute Eosinophils 0.2 K/uL (0-0.5) 02/02/20 05:46 Absolute Basophils 0.1 K/uL (0-0.5) 02/02/20 05:46 Sodium 141 mmol/L (136-145) 02/02/20 05:46 Potassium 4.8 mmol/L (3.5-5.1) 02/02/20 05:46 Chloride 107 mmol/L (98-107) 02/02/20 05:46 Carbon Dioxide 28 mmol/L (21-32) 02/02/20 05:46 BUN 42 mg/dL (7-18) H 02/02/20 05:46 Creatinine 1.31 mg/dL (0.55-1.3) H 02/02/20 05:46 Estimated GFR 39 mL/min (=/>90) L 02/02/20 05:46 Glucose 98 mg/dL (74-106) 02/02/20 05:46 Calcium 8.5 mg/dL (8.5-10.1) 02/02/20 05:46 Magnesium 2.7 mg/dL (1.8-2.4) H 02/02/20 05:46 Albumin 2.9 g/dL (3.4-5.0) L 02/02/20 05:46 Prealbumin 14.1 mg/dL (20-40) L 02/02/20 05:46 Urine Color Yellow 01/24/20 15:00 Urine Appearance Cloudy 01/24/20 15:00 Urine pH 5.5 (5.0-7.0) 01/24/20 15:00 Ur Specific Brenham 1.010 (1.005-1.030) 01/24/20 15:00 Glucose (UA)(Auto) Negative (NEG) 01/24/20 15:00 Urine Ketones Negative (NEG) 01/24/20 15:00 Urine Blood Negative (NEG) 01/24/20 15:00 Urine Nitrite Negative (NEG) 01/24/20 15:00 Urine Bilirubin Negative (NEG) 01/24/20 15:00 Urine Urobilinogen 0.2 mg/dL (0.2-1.0) 01/24/20 15:00 Ur Leukocyte Esterase 3+ (NEG) H 01/24/20 15:00 Urine RBC <5 /HPF (NONE SEEN) 01/24/20 15:00 Urine WBC 10-20 /HPF (<5) H 01/24/20 15:00 Ur Squamous Epith Cells 5-10 /HPF (NONE SEEN) H 01/24/20 15:00 Urine Bacteria <20 /HPF (<20) 01/24/20 15:00 Urine Culture Reflexed Not needed 01/24/20 15:00 Urine Total Protein Negative (NEG) 01/24/20 15:00 SARS-CoV-2 RNA (RT-PCR) Negative (NEGATIVE) 01/31/20 07:25 Weight: 105 lb 4 oz Wound Present: No Closed Surgical Incision Present: No Negative Pressure Wound Therapy Present: No Physician Update: Labs reviewed and show mildly low prealbumin. She is at modified independence. However, she has to take care of her who is a dialysis patient. She fatigues moderately easily. She will likely improve endurance with more physical therapy. Functional Improvement: Patient is progressing well and presents w/ good attitude toward therapy, and safety awareness. Patient currently SBA w/ transfers and and gait at 55 ft. Summary: Patient's care plan and public service officer goals have been reviewed and revised as necessary. Please see the Rehabilitation Signature page for all necessary signatures.
[2020-02-03] MEDS: GABAPENTIN 100 MG CAP PO SCH ×2 (15:29→20:24)
--- NOTE | 2020-02-04 02:14 | FAST ---
[employer] FORM SHIFT START DATE/TIME: 02/03/2020 19:00 (CDT) SHIFT END DATE/TIME: 02/04/2020 07:00 (CDT) NAME SO JAMES DATE OF : 1940 DATE OF ADMISSION: 01/24/2020 12:00 (CDT) PHONE: AGE: 79 N# [id number] GENDER: Female ENCOUNTER PHYSICIAN: Dr. Nathan Grove M.D. ADMISSION DIAGNOSIS: - Debility 16 - Debility (16) BILATERAL AVULSION TO LOWER EXTREMITIES. EATING: Not assessed/no information CODE: - ORAL HYGIENE: Not assessed/no information CODE: - TOILETING HYGIENE: TOILETING HYGIENE - STEP 1: Does the patient complete the activity by him/herself with no assistance (physical, verbal/nonverbal cueing, setup/clean-up)? No. TOILETING HYGIENE - STEP 2: Does the patient need only setup/clean-up assistance from one helper? Yes. 1. [id number] ADMISSION PERFORMANCE: Setup or clean-up assistance CODE: 05 BATHING: Not assessed/no information CODE: - DRESSING - UPPER BODY: Not assessed/no information CODE: - DRESSING - LOWER BODY: Not assessed/no information CODE: - PUTTING ON/TAKING OFF FOOTWEAR: Not assessed/no information CODE: - ROLL LEFT AND RIGHT: ROLL LEFT AND RIGHT - STEP 1: Does the patient complete the activity by him/herself with no assistance (physical, verbal/nonverbal cueing, setup/clean-up)? No. ROLL LEFT AND RIGHT - STEP 2: Does the patient need only setup/clean-up assistance from one helper? Yes. 1. [id number] ADMISSION PERFORMANCE: Setup or clean-up assistance CODE: 05 SIT TO LYING: SIT TO LYING - STEP 1: Does the patient complete the activity by him/herself with no assistance (physical, verbal/nonverbal cueing, setup/clean-up)? No. SIT TO LYING - STEP 2: Does the patient need only setup/clean-up assistance from one helper? Yes. 1. [id number] ADMISSION PERFORMANCE: Setup or clean-up assistance CODE: 05 LYING TO SITTING: LYING TO SITTING ON SIDE OF BED - STEP 1: Does the patient complete the activity by him/herself with no assistance (physical, verbal/nonverbal cueing, setup/clean-up)? No. LYING TO SITTING ON SIDE OF BED - STEP 2: Does the patient need only setup/clean-up assistance from one helper? Yes. 1. [id number] ADMISSION PERFORMANCE: Setup or clean-up assistance CODE: 05 SIT TO STAND: SIT TO STAND - STEP 1: Does the patient complete the activity by him/herself with no assistance (physical, verbal/nonverbal cueing, setup/clean-up)? No. SIT TO STAND - STEP 2: Does the patient need only setup/clean-up assistance from one helper? Yes. 1. [id number] ADMISSION PERFORMANCE: Setup or clean-up assistance CODE: 05 TRANSFERS: BED, CHAIR: CHAIR/[id number] TRANSFER - STEP 1: Does the patient complete the activity by him/herself with no assistance (physical, verbal/nonverbal cueing, setup/clean-up)? No. CHAIR/[id number] TRANSFER - STEP 2: Does the patient need only setup/clean-up assistance from one helper? Yes. 1. [id number] ADMISSION PERFORMANCE: Setup or clean-up assistance CODE: 05 TRANSFER TOILET: TOILET TRANSFER - STEP 1: Does the patient complete the activity by him/herself with no assistance (physical, verbal/nonverbal cueing, setup/clean-up)? No. TOILET TRANSFER - STEP 2: Does the patient need only setup/clean-up assistance from one helper? Yes. 1. [id number] ADMISSION PERFORMANCE: Setup or clean-up assistance CODE: 05 TRANSFERS: CAR: Not assessed/no information CODE: - WALK 10 FEET: Not assessed/no information CODE: - 1 STEP (CURB): Not assessed/no information CODE: - PICKING UP OBJECT: Not assessed/no information CODE: - DOES THE PATIENT USE A WHEELCHAIR/SCOOTER? CODE: EXPR WHEEL 50 FEET WITH TWO TURNS: Not assessed/no information CODE: - INDICATE THE TYPE OF WHEELCHAIR/SCOOTER USED: CODE: EXPR WHEEL 150 FEET: Not assessed/no information CODE: - INDICATE THE TYPE OF WHEELCHAIR/SCOOTER USED: CODE: EXPR BLADDER AND BOWEL: H350. BLADDER CONTINENCE (3-DAY ASSESSMENT PERIOD): Always continent (no documented incontinence) CODE: 0 H400. BOWEL CONTINENCE (3-DAY ASSESSMENT PERIOD): Always continent CODE: 0
[2020-02-04] MEDS: SOTALOL HCL 80 MG TAB PO SCH ×2 (05:01→17:04)
[2020-02-04 05:32] VITALS: BMI 19.1
[2020-02-04] MEDS: PANTOPRAZOLE 40MG TABLET PO SCH (07:21)
[2020-02-04] MEDS: [UNRECOGNIZED DRUG - OTHER] IH SCH (07:26)
[2020-02-04] MEDS: [UNRECOGNIZED DRUG - OTHER] PO SCH (08:00)
[2020-02-04] MEDS: FE SULF/FA/VIT B COMP & C TAB PO SCH (08:24)
[2020-02-04] MEDS: GABAPENTIN 100 MG CAP PO SCH ×2 (08:24→19:11)
[2020-02-04] MEDS: ASPIRIN 81 MG CHEWABLE TABLET PO SCH (08:24)
[2020-02-04] MEDS: ROFLUMILAST 500 MCG TABLET PO SCH (08:24)
[2020-02-04] MEDS: CRANBERRY FRUIT EXTRACT 200 MG CAP PO SCH ×2 (08:24→19:11)
[2020-02-04] MEDS: DOCUSATE NA 100 MG CAP PO SCH ×2 (08:26→19:11)
[2020-02-04] MEDS: HCTZ PO SCH (08:26)
[2020-02-04] MEDS: ASCORBIC ACID 500 MG TABLET PO SCH (08:26)
[2020-02-04] MEDS: LOSARTAN PO SCH (08:26)
[2020-02-04] MEDS: FOLIC ACID 400 MCG PO SCH (08:27)
[2020-02-04] MEDS: PROMOD 30 ML DOSE PO SCH ×2 (08:27→19:10)
[2020-02-04] MEDS: ENSURE ENLIVE 237 ML CAN PO SCH ×2 (08:27→19:11)
[2020-02-04] MEDS: ACETAMINOPHEN 325 MG TABLET PO PRN ×3 (08:41→19:10)
[2020-02-04] MEDS: ONDANSETRON 4 MG (ODT) TAB PO PRN (12:41)
[2020-02-04] MEDS: COLLAGENASE 30 GM OINTMENT TOP SCH (13:34)
[2020-02-04] MEDS: MAGNESIUM HYDROXIDE 8% 30 ML PO PRN (14:13)
[2020-02-04] MEDS: DOCUSATE NA/SENNA CONC 1 TAB PO PRN (19:10)
[2020-02-05] MEDS: MAGNESIUM HYDROXIDE 8% 30 ML PO PRN (04:46)
[2020-02-05] MEDS: SOTALOL HCL 80 MG TAB PO SCH ×2 (05:03→17:23)
[2020-02-05] MEDS: [UNRECOGNIZED DRUG - OTHER] PO SCH (08:00)
[2020-02-05] MEDS: [UNRECOGNIZED DRUG - OTHER] IH SCH (08:19)
[2020-02-05] MEDS: COLLAGENASE 30 GM OINTMENT TOP SCH (08:20)
[2020-02-05] MEDS: CRANBERRY FRUIT EXTRACT 200 MG CAP PO SCH ×2 (08:20→19:42)
[2020-02-05] MEDS: FE SULF/FA/VIT B COMP & C TAB PO SCH (08:20)
[2020-02-05] MEDS: DOCUSATE NA 100 MG CAP PO SCH ×2 (08:21→19:42)
[2020-02-05] MEDS: PANTOPRAZOLE 40MG TABLET PO SCH (08:21)
[2020-02-05] MEDS: ASCORBIC ACID 500 MG TABLET PO SCH (08:21)
[2020-02-05] MEDS: ASPIRIN 81 MG CHEWABLE TABLET PO SCH (08:21)
[2020-02-05] MEDS: ACETAMINOPHEN 325 MG TABLET PO PRN ×2 (08:21→16:28)
[2020-02-05] MEDS: GABAPENTIN 100 MG CAP PO SCH ×2 (08:21→19:42)
[2020-02-05] MEDS: LOSARTAN PO SCH (08:52)
[2020-02-05] MEDS: HCTZ PO SCH (08:52)
[2020-02-05] MEDS: FOLIC ACID 400 MCG PO SCH (08:52)
[2020-02-05] MEDS: PROMOD 30 ML DOSE PO SCH ×2 (08:54→19:42)
[2020-02-05] MEDS: ENSURE ENLIVE 237 ML CAN PO SCH ×2 (09:14→19:55)
--- NOTE | 2020-02-05 14:07 | FAST ---
[employer] FORM SHIFT START DATE/TIME: 02/05/2020 07:00 (CDT) SHIFT END DATE/TIME: 02/05/2020 19:00 (CDT) NAME SO JAMES DATE OF : 1940 DATE OF ADMISSION: 01/24/2020 12:00 (CDT) PHONE: AGE: 79 N# [id number] GENDER: Female ENCOUNTER PHYSICIAN: Dr. Nathan Grove M.D. ADMISSION DIAGNOSIS: - Debility 16 - Debility (16) BILATERAL AVULSION TO LOWER EXTREMITIES. EATING: EATING - STEP 1: Does the patient complete the activity by him/herself with no assistance (physical, verbal/nonverbal cueing, setup/clean-up)? No. EATING - STEP 2: Does the patient need only setup/clean-up assistance from one helper? Yes. 1. [id number] ADMISSION PERFORMANCE: Setup or clean-up assistance CODE: 05 ORAL HYGIENE: ORAL HYGIENE - STEP 1: Does the patient complete the activity by him/herself with no assistance (physical, verbal/nonverbal cueing, setup/clean-up)? No. ORAL HYGIENE - STEP 2: Does the patient need only setup/clean-up assistance from one helper? Yes. 1. [id number] ADMISSION PERFORMANCE: Setup or clean-up assistance CODE: 05 TOILETING HYGIENE: TOILETING HYGIENE - STEP 1: Does the patient complete the activity by him/herself with no assistance (physical, verbal/nonverbal cueing, setup/clean-up)? Yes. 1. [id number] ADMISSION PERFORMANCE: Independent CODE: 06 BATHING: Not assessed/no information CODE: - DRESSING - UPPER BODY: DRESSING - UPPER BODY - STEP 1: Does the patient complete the activity by him/herself with no assistance (physical, verbal/nonverbal cueing, setup/clean-up)? No. DRESSING - UPPER BODY - STEP 2: Does the patient need only setup/clean-up assistance from one helper? Yes. 1. [id number] ADMISSION PERFORMANCE: Setup or clean-up assistance CODE: 05 DRESSING - LOWER BODY: DRESSING - LOWER BODY - STEP 1: Does the patient complete the activity by him/herself with no assistance (physical, verbal/nonverbal cueing, setup/clean-up)? No. DRESSING - LOWER BODY - STEP 2: Does the patient need only setup/clean-up assistance from one helper? Yes. 1. [id number] ADMISSION PERFORMANCE: Setup or clean-up assistance CODE: 05 PUTTING ON/TAKING OFF FOOTWEAR: FOOTWEAR - STEP 1: Does the patient complete the activity by him/herself with no assistance (physical, verbal/nonverbal cueing, setup/clean-up)? Yes. 1. [id number] ADMISSION PERFORMANCE: Independent CODE: 06 ROLL LEFT AND RIGHT: ROLL LEFT AND RIGHT - STEP 1: Does the patient complete the activity by him/herself with no assistance (physical, verbal/nonverbal cueing, setup/clean-up)? No. ROLL LEFT AND RIGHT - STEP 2: Does the patient need only setup/clean-up assistance from one helper? No. ROLL LEFT AND RIGHT - STEP 3: Does the patient need only verbal/nonverbal cueing or touching/steadying/contact guard assistance fro m one helper? Yes. 1. [id number] ADMISSION PERFORMANCE: Supervision or touching assistance CODE: 04 SIT TO LYING: SIT TO LYING - STEP 1: Does the patient complete the activity by him/herself with no assistance (physical, verbal/nonverbal cueing, setup/clean-up)? No. SIT TO LYING - STEP 2: Does the patient need only setup/clean-up assistance from one helper? Yes. 1. [id number] ADMISSION PERFORMANCE: Setup or clean-up assistance CODE: 05 LYING TO SITTING: LYING TO SITTING ON SIDE OF BED - STEP 1: Does the patient complete the activity by him/herself with no assistance (physical, verbal/nonverbal cueing, setup/clean-up)? No. LYING TO SITTING ON SIDE OF BED - STEP 2: Does the patient need only setup/clean-up assistance from one helper? Yes. 1. [id number] ADMISSION PERFORMANCE: Setup or clean-up assistance CODE: 05 SIT TO STAND: SIT TO STAND - STEP 1: Does the patient complete the activity by him/herself with no assistance (physical, verbal/nonverbal cueing, setup/clean-up)? No. SIT TO STAND - STEP 2: Does the patient need only setup/clean-up assistance from one helper? Yes. 1. [id number] ADMISSION PERFORMANCE: Setup or clean-up assistance CODE: 05 TRANSFERS: BED, CHAIR: CHAIR/[id number] TRANSFER - STEP 1: Does the patient complete the activity by him/herself with no assistance (physical, verbal/nonverbal cueing, setup/clean-up)? No. CHAIR/[id number] TRANSFER - STEP 2: Does the patient need only setup/clean-up assistance from one helper? Yes. 1. [id number] ADMISSION PERFORMANCE: Setup or clean-up assistance CODE: 05 TRANSFER TOILET: TOILET TRANSFER - STEP 1: Does the patient complete the activity by him/herself with no assistance (physical, verbal/nonverbal cueing, setup/clean-up)? Yes. 1. [id number] ADMISSION PERFORMANCE: Independent CODE: 06 TRANSFERS: CAR: Not assessed/no information CODE: - WALK 10 FEET: Not assessed/no information CODE: - 1 STEP (CURB): Not assessed/no information CODE: - PICKING UP OBJECT: Not assessed/no information CODE: - DOES THE PATIENT USE A WHEELCHAIR/SCOOTER? Q1. DOES THE PATIENT USE A WHEELCHAIR/SCOOTER?: Yes CODE: 1 WHEEL 50 FEET WITH TWO TURNS: WHEEL 50 FEET WITH TWO TURNS - STEP 1: Does the patient complete the activity by him/herself with no assistance (physical, verbal/nonverbal cueing, setup/clean-up)? No. WHEEL 50 FEET WITH TWO TURNS - STEP 2: Does the patient need only setup/clean-up assistance from one helper? Yes. 1. [id number] ADMISSION PERFORMANCE: Setup or clean-up assistance CODE: 05 INDICATE THE TYPE OF WHEELCHAIR/SCOOTER USED: RR1. INDICATE THE TYPE OF WHEELCHAIR/SCOOTER USED.: Manual CODE: 1 WHEEL 150 FEET: Not assessed/no information CODE: - INDICATE THE TYPE OF WHEELCHAIR/SCOOTER USED: SS1. INDICATE THE TYPE OF WHEELCHAIR/SCOOTER USED.: Manual CODE: 1 BLADDER AND BOWEL: H350. BLADDER CONTINENCE (3-DAY ASSESSMENT PERIOD): Always continent (no documented incontinence) CODE: 0 H400. BOWEL CONTINENCE (3-DAY ASSESSMENT PERIOD): Always continent CODE: 0 SIGNATURE PANEL: The following modified sections: 1. [id number] Admission Performance, 1. [id number] Admission Performance, 1. [id number] Admission Performance, 1. [id number] Admission Performance, 1. [id number] Admission Performance, 1. ZW5941b Admission Performance, 1. TH2848v Admission Performance, 1. EN5668A Admission Performance , 1. [id number] Admission Performance, 1. [id number] Admission Performance, 1. [id number] Admission Performanc e, 1. [id number] Admission Performance, 1. [id number] Admission Performance, 1. [id number] Admission Performan ce, Q1. Does the patient use a wheelchair/scooter?, 1. [id number] Admission Performance, RR1. Indicate t he type of wheelchair/scooter used., Code, SS1. Indicate the type of wheelchair/scooter used., H350. Bladder Continence (3-day assessment period), H400. Bowel Continence (3-day assessment period) were [ electronically] signed by Domi Lopez C.N.A. on ThuFeb 05 2020 14:06:08 T-0500 (Central Daylight Time)
[2020-02-05] MEDS ORDERED: FLEET ENEMA ADULT PR ONE (15:00)
[2020-02-05] MEDS ORDERED: FLEET ENEMA ADULT PR PRN (16:12)
[2020-02-05] MEDS: DOCUSATE NA/SENNA CONC 1 TAB PO PRN (19:42)
[2020-02-06] MEDS: ACETAMINOPHEN 325 MG TABLET PO PRN ×4 (02:50→19:10)
[2020-02-06] MEDS: SOTALOL HCL 80 MG TAB PO SCH ×2 (05:04→17:04)
[2020-02-06 05:57] LABS: Absolute Lymphocytes (CBC) 1.3 K/uL (0.7-4.9); Basophils % 0.8 % (0-1.3); Hematocrit 26.5 % (36.0-45.0); Lymphocytes % 9.6 % (15.3-44.8); MPV 7.8 fL (7.6-11.3); RBC Red Blood Cell Count 2.78 M/uL (3.86-4.86)
[2020-02-06 06:10] LABS: Potassium 4.2 mmol/L (3.5-5.1)
[2020-02-06] MEDS: PANTOPRAZOLE 40MG TABLET PO SCH (07:07)
[2020-02-06] MEDS: [UNRECOGNIZED DRUG - OTHER] IH SCH (07:07)
[2020-02-06 07:39] LABS: Platelet Estimate ADEQ; Urine White Blood Cell Casts OK
[2020-02-06 07:40] LABS: Blood Morphology Comment NOT SEEN (NOT SEEN)
[2020-02-06] MEDS: ROFLUMILAST 500 MCG TABLET PO SCH (07:42)
[2020-02-06] MEDS: LOSARTAN PO SCH (07:42)
[2020-02-06] MEDS: PROMOD 30 ML DOSE PO SCH ×2 (07:42→19:10)
[2020-02-06] MEDS: HCTZ PO SCH (07:42)
[2020-02-06] MEDS: DOCUSATE NA 100 MG CAP PO SCH ×2 (07:43→19:11)
[2020-02-06] MEDS: FE SULF/FA/VIT B COMP & C TAB PO SCH (07:43)
[2020-02-06] MEDS: ASPIRIN 81 MG CHEWABLE TABLET PO SCH (07:43)
[2020-02-06] MEDS: ASCORBIC ACID 500 MG TABLET PO SCH (07:43)
[2020-02-06] MEDS: FERROUS SULFATE 325 MG TAB PO SCH (07:43)
[2020-02-06] MEDS: CRANBERRY FRUIT EXTRACT 200 MG CAP PO SCH ×2 (07:43→19:11)
[2020-02-06] MEDS: GABAPENTIN 100 MG CAP PO SCH ×2 (07:43→19:11)
[2020-02-06] MEDS: ENSURE ENLIVE 237 ML CAN PO SCH ×2 (07:44→19:11)
[2020-02-06] MEDS: FOLIC ACID 400 MCG PO SCH (07:44)
[2020-02-06] MEDS: [UNRECOGNIZED DRUG - OTHER] PO SCH (07:45)
--- NOTE | 2020-02-06 11:20 | RAD REPORT ---
EXAM DESCRIPTION: Maira Single View02/06/2020 10:45 am CLINICAL HISTORY: Chest pain COMPARISON: 2017 FINDINGS: The lungs appear clear of acute infiltrate. The heart is normal size. . Pacemaker leads a re in place. IMPRESSION: No acute abnormalities displayed
--- NOTE | 2020-02-06 12:51 | RAD REPORT ---
EXAM DESCRIPTION: RAD - Abdomen 1 View (KUB) - 02/06/2020 12:44 pm CLINICAL HISTORY: r/o abd obstruction Pain COMPARISON: No comparisons FINDINGS: The bowel gas pattern is non-obstructive. No evidence of free air or pneumatosis. No suspi cious calcifications. No significant bony findings. IMPRESSION: Negative examination.
[2020-02-06] MEDS: COLLAGENASE 30 GM OINTMENT TOP SCH (14:30)
--- NOTE | 2020-02-06 18:42 | R.PN ---
PROGRESS NOTES ENCOUNTER DATE AND TIME: 02/06/2020 18:35 (CDT) NAME SO JAMES DATE OF : 1940 DATE OF ADMISSION: 01/24/2020 12:00 (CDT) BILATERAL AVULSION TO LOWER EXTREMITIESCHIEF COMPLAINT: Debility and bilateral lower extremity avulsions SUBJECTIVE: Pt denied any depression. Pt denied any Shortness of Breath. WBC increased to 13.7 from 4.7 in 3 days. Her chest x-ray and KUB are normal. Hgb 8.9, electrolytes were essentially normal. Creatinine increased to 1.42 from 1.2. Will push fluids, and start cranberry pills twice daily. Prealbumin was low at 14.1. UA shows 3+ esterase and elevated WBC of 10-20, but cultures are nevative. She is back today after having surgical debridement of her thigh wounds. She is followed by the wound care service. Ambulated 500' with independence using a rolling walker and a rollator. VITAL SIGNS Temperature: 97.4 F SBP/DBP: 128/50 Pulse: 62 Resp: 16 MEDICATION ALLERGIES: No Known Drug Allergies (NKDA) ENVIRONMENTAL ALLERGIES: - Substance Allergies None Known - Other Allergies None Known NURSING: - Shower allowing shower ACTIVITIES OOB only with supervision THERAPIES: - Dietary and Nutrition Adequate Nutrition. Nutritional Education. Nutritional Supplements. PHYSICAL EXAM - Gen Alert and awake Lying in bed No apparent distress Oriented to: person, time, and place - Skin No skin breakdown. Normacephalic - Eyes No abnormalities - ENMT No abnormalities - Neck No abnormalities - CVS RRR - Chest Clear - Resp Clear to auscultation - Abd Soft - GI Non distended Deferred - No abnormalities - Ext Mild bilateral lower extremity edema. - MSK 4+/5 weakness in both lower extremities. - Neuro No focal deficits - Psych No abnormalities ASSESSMENT: Pt. is a 79 yo Right-handed female of unknown race.On 01/21/2020 she was admitted to [facility] with diagnosis BILATERAL AVULSION TO LOWER EXTREMITIES.Her impairment category is Debility 16 - D ebility (16).Pre-morbidly, Pt. was independent/mod-I in Locomotion, Balance, Social Cognition, Transf ers Control, Sphincter Control, Self-Care, Communication, and Endurance; and she had good Endurance, Self-Care, Communication, Safety Awareness, and Transfers Control.Currently, she has deficits of Hany nce, Safety Awareness, Locomotion, Endurance, Sphincter Control, and Transfers Control.Pt. is now ref erred to [facility] for acute in-patient rehabilitation in order to maximize p atient's functional independence in activities of daily living, strength, ROM, and mobility.- Rehab G oal Patient has realistic goal of being discharged at assistance level 6-Fly to reside at Home with Fam lisandro/Relatives. MDM/PLAN: - Physical Therapy Gait dysfunction - to improve, our physical therapists will perform initial evaluation of pt's statu s upon admission and devise an individualized program for Gait Training, and Wheel Chair mobility Inability to transfer - to improve, our physical therapists will perform initial evaluation of pt's status upon admission and devise an individualized program for Bed mobility Need for home safety evaluation - to improve, our physical therapists will perform initial evaluatio n of pt's status upon admission and devise an individualized program for Home Evaluation Need in caregiver upon discharge - to improve, our physical therapists will perform initial evaluati on of pt's status upon admission and devise an individualized program for Caregiver Training New precaution - to improve, our physical therapists will perform initial evaluation of pt's status upon admission and devise an individualized program for Patient precaution education Edema - to improve, our physical therapists will perform initial evaluation of pt's status upon admi ssion and devise an individualized program for Elevation Training, and Lymphedema Therapy Poor balance - to improve, our physical therapists will perform initial evaluation of pt's status up on admission and devise an individualized program for Balance Training Poor endurance - to improve, our physical therapists will perform initial evaluation of pt's status upon admission and devise an individualized program for Endurance Training Weakness - to improve, our physical therapists will perform initial evaluation of pt's status upon a dmission and devise an individualized program for Aquatic Therapy, Neuromuscular Reeducation, and Str engthening Achieving independence - to improve, our physical therapists will perform initial evaluation of pt's status upon admission and devise an individualized program for Community Reintegration Activities - Occupational Therapy Need for day care home provider - to improve, our occupation therapists will perform initial evaluation of pt's status upon admission and devise an individualized program for Caregiver Training Weakness - to improve, our occupation therapists will perform initial evaluation of pt's status upon admission and devise an individualized program for Aquatic Therapy, Balance, Endurance, UE ROM, and UE strengthening - Other See attached MAR (Medication Administration Record) - Diet Type Continue Regular - Diet - Liquid Texture Continue Regular - Tube Feed Continue N/A - Diet - Solid Texture Continue Regular - Shower allowing shower FUNCTIONAL STATUS: UPDATED AT WEEKLY TEAM CONFERENCE - Bladder Same accident frequency: 7-Ind - No accidents in the past 7 days - Bowel Same accident frequency: 7-Ind - No accidents in the past 7 days - Walking Same score based on distance walked: 0(N/A) - Wheelchair Same score based on distance traveled: 0(N/A) FUNCTIONAL STATUS: - Self-Care A. Eating Fly B. Grooming Fly C. Bathing sup D. Dressing - Upper sup E. Dressing - Lower sup F. Toileting sup - Sphincter Control G. Bladder control Fly H. Bowel control Fly - Transfers Control I. Bed/Chair/Wheelchair Fly J. Toilet Fly K. Tub/Shower sup - Locomotion L. Walk/Wheelchair (B) Fly M. Stairs Fly - Communication N. Comprehension (B) Fly O. Expression (B) Fly - Social Cognition P. Social Interaction Fly Q. Problem Solving Fly R. Memory Fly - Endurance Good - Balance Good - Safety Awareness Good QI SCORES: - Self-Care A. Eating 03-Partial/moderate assistance B. Oral hygiene 03-Partial/moderate assistance C. Toileting hygiene 88-Not attempted due to medical condition or safety concerns E. Shower/bathe self 03-Partial/moderate assistance F. Upper body dressing 88-Not attempted due to medical condition or safety concerns G. Lower body dressing 88-Not attempted due to medical condition or safety concerns H. Putting on/taking off footwear 88-Not attempted due to medical condition or safety concerns - Mobility A. Roll left and right 03-Partial/moderate assistance B. Sit to lying 03-Partial/moderate assistance C. Lying to sitting on side of bed 03-Partial/moderate assistance D. Sit to stand 03-Partial/moderate assistance E. Chair/frg-me-cdcmw transfer 03-Partial/moderate assistance F. Toilet transfer 03-Partial/moderate assistance G. Car transfer 88-Not attempted due to medical condition or safety concerns I. Walk 10 feet 88-Not attempted due to medical condition or safety concerns J. Walk 50 feet with two turns 88-Not attempted due to medical condition or safety concerns K. Walk 150 feet 88-Not attempted due to medical condition or safety concerns L. Walking 10 feet on uneven surfaces 88-Not attempted due to medical condition or safety concerns M. 1 step (curb) 88-Not attempted due to medical condition or safety concerns N. 4 steps 88-Not attempted due to medical condition or safety concerns O. 12 steps 88-Not attempted due to medical condition or safety concerns P. Picking up object 03-Partial/moderate assistance R. Wheel 50 feet with two turns 88-Not attempted due to medical condition or safety concerns S. Wheel 150 feet 88-Not attempted due to medical condition or safety concerns - Bladder and Bowel Bladder continence 3-Incontinent daily Bowel continence 0-Always continent - Endurance Fair - Balance Fair - Safety Awareness Fair CURRENT [facility]. DEFICITS: Self-Care, Mobility, Endurance, Balance, and Safety Awareness SIGNATURE PANEL: (CDT)
[2020-02-06] MEDS: ZOLPIDEM TARTRATE 5 MG TABLET PO PRN (19:11)
[2020-02-06 20:07] VITALS: TEMP 97.2
[2020-02-07 04:54] LABS: Absolute Lymphocytes (CBC) 1.7 K/uL (0.7-4.9); Basophils % 0.7 % (0-1.3); Hematocrit 26.9 % (36.0-45.0); MPV 7.8 fL (7.6-11.3); RBC Red Blood Cell Count 2.83 M/uL (3.86-4.86)
[2020-02-07] MEDS: ACETAMINOPHEN 325 MG TABLET PO PRN ×2 (04:59→08:51)
[2020-02-07] MEDS: SOTALOL HCL 80 MG TAB PO SCH (05:00)
[2020-02-07 07:13] VITALS: BP 169/86
[2020-02-07] MEDS: ENSURE ENLIVE 237 ML CAN PO SCH (08:00)
[2020-02-07] MEDS: PROMOD 30 ML DOSE PO SCH (08:00)
[2020-02-07] MEDS: [UNRECOGNIZED DRUG - OTHER] PO SCH (08:00)
[2020-02-07] MEDS: COLLAGENASE 30 GM OINTMENT TOP SCH (08:48)
[2020-02-07] MEDS: CRANBERRY FRUIT EXTRACT 200 MG CAP PO SCH (08:48)
[2020-02-07] MEDS: [UNRECOGNIZED DRUG - OTHER] IH SCH (08:48)
[2020-02-07] MEDS: GABAPENTIN 100 MG CAP PO SCH (08:49)
[2020-02-07] MEDS: ASCORBIC ACID 500 MG TABLET PO SCH (08:49)
[2020-02-07] MEDS: FERROUS SULFATE 325 MG TAB PO SCH (08:50)
[2020-02-07] MEDS: FE SULF/FA/VIT B COMP & C TAB PO SCH (08:50)
[2020-02-07] MEDS: PANTOPRAZOLE 40MG TABLET PO SCH (08:51)
[2020-02-07] MEDS: DOCUSATE NA 100 MG CAP PO SCH (08:51)
[2020-02-07] MEDS: ASPIRIN 81 MG CHEWABLE TABLET PO SCH (08:51)
[2020-02-07] MEDS: LOSARTAN PO SCH (08:52)
[2020-02-07] MEDS: HCTZ PO SCH (08:52)
[2020-02-07] MEDS: FOLIC ACID 400 MCG PO SCH (08:53)
== END 2020-02-07 14:20 | disposition home health service (06) | DRG 941 ==
LOC: 5TH 13:51
PROVIDERS: ADMIT Psychiatry & Neurology Neurology with Special Qualifications in Child Neurology; ATTEND Psychiatry & Neurology Neurology with Special Qualifications in Child Neurology
PROC: 0JBP0ZZ Excision of Left Lower Leg Subcutaneous Tissue and Fascia, Open Approach (ICD-10-PCS; 2020-02-02)
PROC: 0JBN0ZZ Excision of Right Lower Leg Subcutaneous Tissue and Fascia, Open Approach (ICD-10-PCS; 2020-02-02)
PROC: 0JDK0ZZ Extraction of Left Hand Subcutaneous Tissue and Fascia, Open Approach (ICD-10-PCS; principal; 2020-02-02 09:00)
DX: R53.81 Other malaise (principal); I25.10 Atherosclerotic heart disease of native coronary artery without angina pectoris; I10 Essential (primary) hypertension; J44.9 Chronic obstructive pulmonary disease, unspecified; K21.9 Gastro-esophageal reflux disease without esophagitis; Z95.0 Presence of cardiac pacemaker; Z90.49 Acquired absence of other specified parts of digestive tract; Z90.710 Acquired absence of both cervix and uterus; Z11.59 Encounter for screening for other viral diseases; S81.802D Unspecified open wound, left lower leg, subsequent encounter; S81.001D Unspecified open wound, right knee, subsequent encounter; S61.402D Unspecified open wound of left hand, subsequent encounter
CPT/HCPCS: 36415; 71045; 74018; 80048; 81001; 82040; 83735; 84134; 85025; 87086; 87088; 88304; 93005; 97110; 97112; 97116; 97162; 97530; 99251; J0690; J2405; J2704; J3010; J3590; J7030; U0002; U0003